=== PATIENT | male | born 1970 | race Caucasian/White ===

== ENCOUNTER 2019-01-07 19:43 | Inpatient (IN) | payer SELFPAY ==
[~2019-01-07] VITALS: Ht 182.9 cm; Wt 88.0 kg
[2019-01-07] VITALS (14 sets, daily range): BP systolic 92–129; BP diastolic 61–81
[~2019-01-07 19:43] MED LIST: HYDR-2890 PO; IBP800T PO
--- OUTSIDE RECORDS SUMMARY | 2019-01-07 19:47 | XMS REPORT | Continuity of Care Document ---
Author Author [facility] Organization [facility] Address Unknown Phone Unavailable Care Team Providers Care Fisher Seal Name Role Phone NO, LOCAL PHYSICIAN PP Unavailable Insurance Providers Payer Name Policy Number Subscriber Name Relationship Self Pay Dayne Acuañ Advance Directives Directive Response Recorded Date Advance Directives N 04/29/13 12:05pm Problems No Known Problems or Medical conditions. Social History History Response Recorded Date/Time Alcohol Use Occasionally Uses 04/29/13 12:05pm Recreational Drug Use Y POT 04/29/13 12:05pm Allergies, Adverse Reactions, Alerts Allergen Type Severity Reaction Last Updated No Known Drug Allergies 04/29/13 Medications Medication Dose Units Route Sig Qty Days Ibuprofen (Motrin) 800 Mg PO Q8HR PRN 30 Hydrocodone Bit/Acetaminophen (Hydrocodon-Acetaminophn 10-325) 1 Each PO Q6H PRN 5 Response Recorded Date/Time Status not known Unknown Results No Known Relevant Diagnostic Tests, Laboratory Data and/or Discharge Summary. Encounters Encounter Location Date/Time Departed Emergency Room [facility] 04/29/13 11:58am
--- OUTSIDE RECORDS SUMMARY | 2019-01-07 19:47 | XMS REPORT | Continuity of Care Document ---
Author Organization Unknown Address Unknown Allergies There is no data. Medications There is no data. Problems Date Dx Coded Attending Type Code Diagnosis Diagnosed By 02/02/2008 TIN DIAZ APRN 110.4 DERMATOPHYTOSIS OF FOOT 02/02/2008 TIN DIAZ APRN 300.00 ANXIETY 02/02/2008 TIN DIAZ APRN 564.00 CONSTIPATION 02/02/2008 TIN DIAZ APRN 110.4 DERMATOPHYTOSIS OF FOOT 02/02/2008 TIN DIAZ APRN 300.00 ANXIETY 02/02/2008 TIN DIAZ APRN 564.00 CONSTIPATION 02/02/2008 TIN DIAZ APRN 110.4 DERMATOPHYTOSIS OF FOOT 02/02/2008 TIN DIAZ APRN 300.00 ANXIETY 02/02/2008 TIN DIAZ APRN 564.00 CONSTIPATION 03/16/2008 TIN DIAZ APRN 815.00 CLOSED FRACTURE OF METACARPAL BONE(S) SITE UNSPECIFIED 03/16/2008 TIN DIAZ APRN 815.00 CLOSED FRACTURE OF METACARPAL BONE(S) SITE UNSPECIFIED 03/16/2008 TIN DIAZ APRN 815.00 CLOSED FRACTURE OF METACARPAL BONE(S) SITE UNSPECIFIED Procedures There is no data. Results There is no data. Encounters ACCT No. Visit Date/Time Discharge Status Pt. Type Provider Facility Loc./Unit Complaint [id number] 01/05/2019 10:00:00 ACT Outpatient TIN DIAZ APRN [facility] [id number] 04/29/2013 11:58:00 04/29/2013 15:25:00 DIS Emergency [id number] 07/31/2014 08:35:00 07/31/2014 23:59:59 CLS Outpatient TIN DIAZ APRN [id number] 05/28/2014 08:14:00 05/28/2014 23:59:59 CLS Outpatient TIN DIAZ APRN [id number] 02/04/2009 00:00:00 02/04/2009 23:59:59 CLS Outpatient TIN DIAZ APRN
--- OUTSIDE RECORDS SUMMARY | 2019-01-07 19:47 | XMS REPORT ---
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 Problem Generalized anxiety disorder F41.1 Active [id number] ALLERGIES No Information ENCOUNTERS Encounter Location Date Diagnosis [facility] [address] [place] [address] November, [facility] [place] [id number] [place] [phone] November, [facility] [address] [place] [address] Oct, Methamphetamine use disorder, severe, 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 and Cannabis use disorder, severe, in sustained remission F12.21 [facility] [address] [place] [address] Oct, Methamphetamine use disorder, severe, 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 and Cannabis use disorder, severe, in sustained remission F12.21 [facility] [place] [id number] [place] [address] Oct, Generalized anxiety disorder F41.1 [facility] [place] [id number] [place] [phone] Oct, [facility] [place] [id number] [place] [phone] Oct, [facility] [place] [id number] [place] [address] Oct, Generalized anxiety disorder F41.1 [facility] [place] [id number] [place] [phone] Oct, Generalized anxiety disorder F41.1 [facility], [place] [id number] [address] Oct, [facility], [place] [id number] [place] [address] Oct, [facility] [place] [address] [place] [address] Aug, [facility] [place] [id number] [place] [address] Aug, [facility] [place] [id number] [place] [address] Jul, [facility] [place] [id number] [place] [address] Jul, [facility] [place] [address] [place] [address] May, [facility] [place] [id number] [place] [address] May, IMMUNIZATIONS No Known Immunizations SOCIAL HISTORY Never Assessed REASON FOR VISIT EMR-[facility] PLAN OF CARE VITAL SIGNS MEDICATIONS Unknown Medications RESULTS No Results PROCEDURES No Known procedures INSTRUCTIONS MEDICATIONS ADMINISTERED No Known Medications MEDICAL (GENERAL) HISTORY Type Description Date Medical History Anxiety Medical History Depression Surgical History Jaw surgery plate put in 2010 Surgical History pins placed in jaw 190
[2019-01-07] MEDS ORDERED: NS IV 1000 ML 2,000 ML IV ONE (20:00)
[2019-01-07] MEDS ORDERED: PROPOFOL DRIP (ICU) 100 ML IV SCH (20:00)
[2019-01-07] MEDS ORDERED: LORazepam INJ 2 MG/ML (ATIVAN) VIAL IVP ONE (20:00)
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
[2019-01-07 20:04] LABS: BASOPHILS % (AUTO) 0 % (0-10); EOSINOPHILS % (AUTO) 0 % (0-10); HEMATOCRIT 43 % (40-54); HEMOGLOBIN 15.2 G/DL (13.3-17.7); LYMPHOCYTES # (AUTO) 0.9 X 10^3 (1.0-4.0); LYMPHOCYTES % (AUTO) 9 % (12-44); MEAN CORPUSCULAR HEMOGLOBIN 30 PG (25-34); MEAN CORPUSCULAR HGB CONC 35 G/DL (32-36); MEAN CORPUSCULAR VOLUME 85 FL (80-99); MEAN PLATELET VOLUME 9.9 FL (7.4-10.4); MONOCYTES % (AUTO) 9 % (0-12); NEUTROPHILS % (AUTO) 82 % (42-75); PLATELET COUNT 302 10^3/uL (130-400); RED CELL DISTRIBUTION WIDTH 12.4 % (10.0-14.5); WHITE BLOOD COUNT 10.9 10^3/uL (4.3-11.0)
[2019-01-07 20:07] LABS: BILIRUBIN,URINE NEGATIVE (NEGATIVE); CLARITY,URINE CLEAR; COLOR,URINE YELLOW; GLUCOSE, URINE (UA) NEGATIVE (NEGATIVE); KETONES,URINE NEGATIVE (NEGATIVE); LEUKOCYTE ESTERASE ,URINE 1+ (NEGATIVE); NITRITE,URINE NEGATIVE (NEGATIVE); PH,URINE 6 (5-9); PROTEIN,URINE 1+ (NEGATIVE); UROBILINOGEN,URINE NORMAL (NORMAL)
[2019-01-07 20:16] LABS: ALANINE AMINOTRANSFERASE 36 U/L (0-55); ALBUMIN 4.1 GM/DL (3.2-4.5); ALKALINE PHOSPHATASE 64 U/L (40-136); BILIRUBIN,TOTAL 1.1 MG/DL (0.1-1.0); BUN/CREATININE RATIO 9; CALCIUM 9.2 MG/DL (8.5-10.1); CARBON DIOXIDE 21 MMOL/L (21-32); CHLORIDE 111 MMOL/L (98-107); CREATININE SERUM 1.17 MG/DL (0.60-1.30); GFR ESTIMATED > 60; GLUCOSE 108 MG/DL (70-105); POTASSIUM 3.9 MMOL/L (3.6-5.0); SALICYLATE < 5.0 MG/DL (5.0-20.0); SODIUM 145 MMOL/L (135-145); TOTAL PROTEIN 6.9 GM/DL (6.4-8.2)
[2019-01-07 20:20] LABS: ACETAMINOPHEN < 10 UG/ML (10-30)
[2019-01-07 20:25] LABS: ABG BASE EXCESS 0.3 MMOL/L (-2.5-2.5); ABG OXYGEN SATURATION 100 % (94-100); ABG PCO2 49 MMHG (35-45); ABG PO2 237 MMHG (79-93); ABG TCO2 27.1 MMOL/L (21.0-31.0); ALLENS TEST POSITIVE; INSPIRED O2 N; PATIENT TEMP 97.2
[2019-01-07 20:26] LABS: ABG PH 7.34 (7.37-7.43); VENTILATOR YES
[2019-01-07] MEDS ORDERED: SUCCINYLCHOLINE INJ 100 MG/5 ML SYR INJ ONE (20:30)
[2019-01-07] MEDS ORDERED: ETOMIDATE IV SOLN 20 MG/10 ML VIAL IV ONE (20:30)
[2019-01-07 20:31] LABS: AMPHETAMINE SCREEN, URINE POSITIVE (NEGATIVE); BARBITURATE SCREEN URINE NEGATIVE (NEGATIVE); BENZODIAZEPINES SCREEN URINE POSITIVE (NEGATIVE); CANNABINOID SCREEN, URINE POSITIVE (NEGATIVE); COCAINE SCREEN URINE NEGATIVE (NEGATIVE); METHADONE STAT NEGATIVE (NEGATIVE); METHAMPHETAMINE SCREEN URINE S NEGATIVE (NEGATIVE); OPIATE SCREEN URINE NEGATIVE (NEGATIVE); OXYCODONE STAT NEGATIVE (NEGATIVE); PROPOXYPHENE STAT NEGATIVE (NEGATIVE); TRICYCLIC ANTIDEPRESSANTS SCRE NEGATIVE (NEGATIVE)
--- NOTE | 2019-01-07 20:37 | Diagnostic Imaging Report ---
INDICATION: Respiratory distress. EXAMINATION: Portable supine AP chest at 8:15 p.m. COMPARISON: There are no prior studies available for comparison. FINDINGS: The heart size is within normal limits. The central pulmonary vascularity is prominent. This may be related to the patient's supine position. There is no evidence for overt failure, pneumonia or for a pleural effusion. The mediastinum is not widened. The osseous structures are intact. The patient has been intubated. An ET tube tip overlies the distal tracheal air shadow. The tip is approximately 3.1 cm cephalad to the ruthann. An OG line has also been inserted. The tip of the OG line overlies the left lung base. Left hemidiaphragm is elevated and I suspect that the tip of the OG line is within the stomach as opposed to the left lung base. If further evaluation of the precise location of the NG line is desired, then CT would be recommended. IMPRESSION: 1. There is no acute cardiopulmonary abnormality identified. 2. The ET tube tip appears to be in good position. The tip of the OG line is more likely within the stomach than in the left lung base. Recommendations as above. Dictated by: Dictated on workstation # [id number]
[2019-01-07 20:42] LABS: BACTERIA,URINE NEGATIVE /HPF; RBC,URINE 0-2 /HPF; WBC,URINE 0-2 /HPF
--- NOTE | 2019-01-07 20:55 | NUR ---
PT TO CT WITH RN/RT/RAD.
--- OUTSIDE RECORDS SUMMARY | 2019-01-07 21:03 | XMS REPORT | Continuity of Care Document ---
[...] Status Pt. Type Provider Facility Loc./Unit Complaint [id number] 01/05/2019 10:00:00 ACT Outpatient TIN DIAZ APRN [facility] [id number] 04/29/2013 11:58:00 04/29/2013 15:25:00 DIS Emergency [id number] 07/31/2014 08:35:00 07/31/2014 23:59:59 CLS Outpatient TIN DIAZ APRN [id number] 05/28/2014 08:14:00 05/28/2014 23:59:59 CLS Outpatient TIN DIAZ APRN [id number] 02/04/2009 00:00:00 02/04/2009 23:59:59 CLS Outpatient TIN DIAZ APRN
--- NOTE | 2019-01-07 21:10 | NUR ---
PT TO ICU RM 1
--- NOTE | 2019-01-07 21:28 | Diagnostic Imaging Report ---
PROCEDURE: CT head without contrast. TECHNIQUE: Multiple contiguous axial images were obtained through the brain without the use of intravenous contrast. Auto Exposure Controls were utilized during the CT exam to meet ALARA standards for radiation dose reduction. INDICATION: Overdose. COMPARISON: There are no prior studies available for comparison. FINDINGS: There is no mass, shift of the midline or hemorrhage to suggest an acute intracranial abnormality. The ventricles are not abnormally dilated. The sulcal pattern is not as prominent as usually seen but still evident. The possibility of generalized brain edema should be considered. The bone windows show no evidence for an acute fracture. There do appear to be long-standing fractures of the nasal bone. The orbits are symmetrical and within normal limits. There is mucosal thickening of the ethmoid sinuses. The sinuses are otherwise generally clear. The patient has been intubated and there is an OG line in place. IMPRESSION: There is no mass or hemorrhage identified. The sulcal pattern is somewhat effaced, however, and this could be secondary to generalized brain edema. If further imaging is desired, then MRI would be recommended. Dictated by: Dictated on workstation # [id number]
[2019-01-07] MEDS ORDERED: CATHETER FLUSH 10 ML SYR IV PRN (21:30)
[2019-01-07] MEDS: 1/2 NS W/KCL 20 MEQ/L 1,000 ML IV SCH (21:54)
[2019-01-07] MEDS: CATHETER FLUSH 10 ML SYR IV SCH (22:00)
[2019-01-07 23:30] LABS: BASOPHILS % (AUTO) 0 % (0-10); EOSINOPHILS % (AUTO) 0 % (0-10); HEMATOCRIT 40 % (40-54); HEMOGLOBIN 13.8 G/DL (13.3-17.7); LYMPHOCYTES # (AUTO) 1.2 X 10^3 (1.0-4.0); LYMPHOCYTES % (AUTO) 13 % (12-44); MEAN CORPUSCULAR HEMOGLOBIN 30 PG (25-34); MEAN CORPUSCULAR HGB CONC 34 G/DL (32-36); MEAN CORPUSCULAR VOLUME 87 FL (80-99); MEAN PLATELET VOLUME 9.6 FL (7.4-10.4); MONOCYTES # (AUTO) 0.7 X 10^3 (0.0-1.0); MONOCYTES % (AUTO) 7 % (0-12); NEUTROPHILS # (AUTO) 7.7 X 10^3 (1.8-7.8); NEUTROPHILS % (AUTO) 79 % (42-75); PLATELET COUNT 233 10^3/uL (130-400); RED CELL DISTRIBUTION WIDTH 12.3 % (10.0-14.5); WHITE BLOOD COUNT 9.7 10^3/uL (4.3-11.0)
--- NOTE | 2019-01-07 23:56 | Anesthesia-Procedure Note ---
Procedures/Interventions Procedure Start/Stop/Diagnosis Date of Procedure: Jan 07, 2019 Start Time: 23:33 Referring Physician: Tanesha Preprocedural Diagnosis: Hypotension, Vent management Brief History Lisette Verduzco RN asked me to place an arterial line in ICU 1. Patient is on propofol gtt for sedation for vent management. NIBP on my arrival was 100/50. 20g arterial line placed in the patient's right wrist x 1 attempt, easily. Good waveform, opsite covering, reported off to Lisette Verduzco RN and she reapplied wrist restraint. Stop Time: 23:42 Arterial Line Arterial Line Catheter: 20G Type: Radial Location: Right Procedure: prepped, draped in sterile fashion, good wave-form was obtained, patient tolerated procedure well, no immediate complications, post procedure area cleaned, post procedure dressing applied MIGUEL WITT CRNA Jan 07, 2019 23:56
[2019-01-08] VITALS (34 sets, daily range): BP systolic 106–154; BP diastolic 57–89
[2019-01-08 03:21] LABS: ABG BASE EXCESS -0.8 MMOL/L (-2.5-2.5); ABG OXYGEN SATURATION 94 % (94-100); ABG PCO2 41 MMHG (35-45); ABG PH 7.38 (7.37-7.43); ABG PO2 66 MMHG (79-93); ABG TCO2 25.2 MMOL/L (21.0-31.0); ALLENS TEST ARTLINE; BASOPHILS # (AUTO) 0.1 10^3/uL (0.0-0.1); BASOPHILS % (AUTO) 1 % (0-10); EOSINOPHILS # (AUTO) 0.2 10^3/uL (0.0-0.3); EOSINOPHILS % (AUTO) 2 % (0-10); HEMATOCRIT 40 % (40-54); HEMOGLOBIN 13.6 G/DL (13.3-17.7); INSPIRED O2 21%; LYMPHOCYTES # (AUTO) 1.7 X 10^3 (1.0-4.0); LYMPHOCYTES % (AUTO) 20 % (12-44); MEAN CORPUSCULAR HEMOGLOBIN 30 PG (25-34); MEAN CORPUSCULAR HGB CONC 34 G/DL (32-36); MEAN CORPUSCULAR VOLUME 87 FL (80-99); MEAN PLATELET VOLUME 9.7 FL (7.4-10.4); MONOCYTES # (AUTO) 0.8 X 10^3 (0.0-1.0); MONOCYTES % (AUTO) 10 % (0-12); NEUTROPHILS # (AUTO) 5.7 X 10^3 (1.8-7.8); NEUTROPHILS % (AUTO) 68 % (42-75); PATIENT TEMP 96.7; PLATELET COUNT 232 10^3/uL (130-400); RED CELL DISTRIBUTION WIDTH 12.4 % (10.0-14.5); VENTILATOR YES; WHITE BLOOD COUNT 8.4 10^3/uL (4.3-11.0)
[2019-01-08] MEDS: 1/2 NS W/KCL 20 MEQ/L 1,000 ML IV SCH ×4 (03:29→20:47)
[2019-01-08 03:40] LABS: ALANINE AMINOTRANSFERASE 26 U/L (0-55); ALBUMIN 3.5 GM/DL (3.2-4.5); ALKALINE PHOSPHATASE 52 U/L (40-136); BILIRUBIN,TOTAL 0.9 MG/DL (0.1-1.0); BUN/CREATININE RATIO 11; CALCIUM 8.4 MG/DL (8.5-10.1); CARBON DIOXIDE 21 MMOL/L (21-32); CHLORIDE 112 MMOL/L (98-107); CREATININE SERUM 0.89 MG/DL (0.60-1.30); GFR ESTIMATED > 60; GLUCOSE 95 MG/DL (70-105); MAGNESIUM 2.1 MG/DL (1.8-2.4); PHOSPHORUS 3.7 MG/DL (2.3-4.7); SODIUM 142 MMOL/L (135-145); TOTAL PROTEIN 5.5 GM/DL (6.4-8.2)
[2019-01-08] MEDS: POTASSIUM CL 10MEQ/50ML IVPB 50 ML IV SCH (04:04)
[2019-01-08] MEDS: MAGNESIUM 1 GM/100 ML IVPB 100 ML IV SCH (04:05)
[2019-01-08] MEDS: KCL 20 MEQ TAB (K-DUR) PO SCH (04:05)
[2019-01-08] MEDS: CATHETER FLUSH 10 ML SYR IV SCH ×3 (06:06→20:48)
[2019-01-08] MEDS: FAMOTIDINE 20MG/2ML IV (PEPCID) IV SCH ×2 (08:38→20:47)
[2019-01-08] MEDS: ENOXAPARIN 40 MG/0.4 ML (LOVENOX) SYR SC SCH (08:38)
--- NOTE | 2019-01-08 09:18 | History & Physical-Hospitalist ---
History of Present Illness HPI/Chief Complaint 48-year-old white male who is brought to the emergency room by the [facility] after he had been chased and then ingested his stash of meth and perhaps Zoloft. The patient was obtunded when he was brought to the emergency room with a seizure-like activity and was electively intubated by Dr. Lincoln to protect his airway. This morning the patient is on a propofol drip breathing easily with excellent blood gases and vital signs. We tapered off the propofol and the patient became extremely agitated and was pulling at his tubes and was not following commands reliably. It is felt that he may not have absorbed all of the methamphetamine or processed it and as such is paralyzed again. Another attempt will be made later this afternoon at tapering off the propofol. Source: old records Exam Limitations: clinical condition, other Date Seen 01/08/19 Time Seen by a Provider: 08:00 Attending Physician Carolann Meng MD PCP No,Local Physician Referring Physician Date of Admission Jan 07, 2019 at 20:59 Home Medications & Allergies Home Medications Reviewed patient Home Medication Reconciliation performed by pharmacy medication reconciliations soil field technician and/or nursing. Patients Allergies have been reviewed. Allergies Allergies Coded Allergies No Known Drug Allergies (Unverified04/29/13) Past Ekqjkym-Kivzgo-Wgiydb Hx Past Med/Social Hx: Reviewed Nursing Past Med/Soc Hx Patient Social History Alcohol Use: Occasionally Uses Recreational Drug Use: Yes Drug of Choice: meth Smoking Status: Unknown if Ever Smoked 2nd Hand Smoke Exposure: Yes Recent Foreign Travel: No Contact w/other who traveled: No Recent Hopitalizations: No Recent Infectious Disease Expo: No Immunizations Up To Date Tetanus Booster (TDap): Less than 5yrs Seasonal Allergies Seasonal Allergies: No Past Medical History Musculoskeletal: Fractures Family History Reviewed Nursing Family Hx Review of Systems ROS-Unable to Obtain: Patient is intubated and sedated and unable to give any review of symptoms Constitutional: no symptoms reported Physical Exam Physical Exam Vital Signs Vital Signs - First Documented 01/07/19 01/07/19 01/07/19 01/07/19 19:43 20:00 20:08 20:09 Temp 97.2 Pulse 100 Resp 40 B/P (MAP) 139/74 (95) Pulse Ox 99 O2 Delivery Room Air O2 Flow Rate 60.00 FiO2 60 Capillary Refill : Less Than 3 Seconds Height, Weight, BMI Height: 6'0.00" Weight: 195lbs. 0.0oz. 88.194807uc; 26.5 BMI Method:Estimated General Appearance: No Apparent Distress, WD/WN HEENT: Normal ENT Inspection, Other (Pupils are pin prick) Neck: Normal Inspection, Supple Respiratory: Chest Non Tender, Lungs Clear, Normal Breath Sounds, No Accessory Muscle Use, No Respiratory Distress Cardiovascular: Regular Rate, Rhythm, No Gallop, No Murmur, Normal Peripheral Pulses Gastrointestinal: Normal Bowel Sounds, No Organomegaly, Non Tender, Soft Rectal: Deferred Back: Normal Inspection Extremity: Normal Capillary Refill, No Pedal Edema Neurologic/Psychiatric: Other ( sedated and intubated) Skin: Normal Color, Warm/Dry Results Results/Procedures Labs Laboratory Tests 01/07/19 19:45 01/07/19 23:25 01/08/19 03:15 01/08/19 12:15 01/09/19 02:45 Patient resulted labs reviewed. Imaging: Reviewed Imaging Report Assessment/Plan Admission Diagnosis Intentional methamphetamine overdose Respiratory failure secondary to overdose Plan is to keep patient intubated for protection of his airway and to control his agitation until the methamphetamine has been metabolized and any absorbed medications have been processed. Admission Status: Inpatient Order (span 2 midnights) Reason for Inpatient Admission: Respiratory failure Polydrug abuse Intentional overdose Critical Care Ventilator Management Clinical Quality Measures DVT/VTE Risk/Contraindication: Risk Factor Score Per Nursin RFS Level Per Nursing on Admit: 4+=Very High CAROLANN MENG MD Jan 08, 2019 09:18
--- NOTE | 2019-01-08 10:37 | Diagnostic Imaging Report ---
INDICATION: Drug overdose. Comparison made with prior examination 01/07/2019. FINDINGS: The endotracheal tube is in satisfactory position. Nasogastric tube is in the stomach. Heart size is normal. Lungs are clear. There is no pleural effusion or pneumothorax. Mediastinum is unremarkable. IMPRESSION: No acute cardiopulmonary abnormality. Dictated by: Dictated on workstation # [id number]
[2019-01-08 12:25] LABS: BASOPHILS % (AUTO) 0 % (0-10); EOSINOPHILS # (AUTO) 0.2 10^3/uL (0.0-0.3); EOSINOPHILS % (AUTO) 2 % (0-10); HEMATOCRIT 41 % (40-54); HEMOGLOBIN 13.7 G/DL (13.3-17.7); LYMPHOCYTES # (AUTO) 1.1 X 10^3 (1.0-4.0); LYMPHOCYTES % (AUTO) 9 % (12-44); MEAN CORPUSCULAR HEMOGLOBIN 30 PG (25-34); MEAN CORPUSCULAR HGB CONC 34 G/DL (32-36); MEAN CORPUSCULAR VOLUME 88 FL (80-99); MEAN PLATELET VOLUME 9.7 FL (7.4-10.4); MONOCYTES # (AUTO) 0.9 X 10^3 (0.0-1.0); MONOCYTES % (AUTO) 7 % (0-12); NEUTROPHILS % (AUTO) 82 % (42-75); PLATELET COUNT 209 10^3/uL (130-400); RED CELL DISTRIBUTION WIDTH 12.6 % (10.0-14.5); WHITE BLOOD COUNT 12.3 10^3/uL (4.3-11.0)
[2019-01-08] MEDS: DEXMEDETOMIDINE INJECTION 200 MCG in NS (IVPB) 50 ML IV SCH ×2 (13:45→14:23)
[2019-01-08] MEDS: LORazepam INJ 2 MG/ML (ATIVAN) VIAL IVP PRN (14:57)
[2019-01-08] MEDS: DEXMEDETOMIDINE INJECTION 400 MCG in NS (IVPB) 100 ML IV SCH ×2 (15:29→20:48)
[2019-01-09] VITALS (35 sets, daily range): BP systolic 92–172; BP diastolic 40–96
[2019-01-09] MEDS: DEXMEDETOMIDINE INJECTION 400 MCG in NS (IVPB) 100 ML IV SCH ×3 (01:35→10:49)
[2019-01-09] MEDS: 1/2 NS W/KCL 20 MEQ/L 1,000 ML IV SCH (01:48)
[2019-01-09 02:59] LABS: ABG BASE EXCESS -1.4 MMOL/L (-2.5-2.5); ABG OXYGEN SATURATION 96 % (94-100); ABG PCO2 37 MMHG (35-45); ABG PH 7.41 (7.37-7.43); ABG PO2 68 MMHG (79-93); ABG TCO2 23.8 MMOL/L (21.0-31.0); ALLENS TEST ARTLINE; INSPIRED O2 24%; PATIENT TEMP 97.8; VENTILATOR YES
[2019-01-09 03:00] LABS: BASOPHILS # (AUTO) 0.1 10^3/uL (0.0-0.1); BASOPHILS % (AUTO) 0 % (0-10); EOSINOPHILS # (AUTO) 0.2 10^3/uL (0.0-0.3); EOSINOPHILS % (AUTO) 2 % (0-10); HEMATOCRIT 42 % (40-54); HEMOGLOBIN 14.7 G/DL (13.3-17.7); LYMPHOCYTES % (AUTO) 7 % (12-44); MEAN CORPUSCULAR HEMOGLOBIN 30 PG (25-34); MEAN CORPUSCULAR HGB CONC 35 G/DL (32-36); MEAN CORPUSCULAR VOLUME 85 FL (80-99); MEAN PLATELET VOLUME 9.5 FL (7.4-10.4); MONOCYTES # (AUTO) 0.8 X 10^3 (0.0-1.0); MONOCYTES % (AUTO) 6 % (0-12); NEUTROPHILS # (AUTO) 11.8 X 10^3 (1.8-7.8); NEUTROPHILS % (AUTO) 85 % (42-75); PLATELET COUNT 192 10^3/uL (130-400); RED CELL DISTRIBUTION WIDTH 12.6 % (10.0-14.5); WHITE BLOOD COUNT 13.9 10^3/uL (4.3-11.0)
[2019-01-09 03:17] LABS: BUN/CREATININE RATIO 11; CALCIUM 8.4 MG/DL (8.5-10.1); CARBON DIOXIDE 19 MMOL/L (21-32); CHLORIDE 106 MMOL/L (98-107); CREATININE SERUM 0.83 MG/DL (0.60-1.30); GFR ESTIMATED > 60; GLUCOSE 93 MG/DL (70-105); MAGNESIUM 1.7 MG/DL (1.8-2.4); PHOSPHORUS 2.8 MG/DL (2.3-4.7); POTASSIUM 3.9 MMOL/L (3.6-5.0); SODIUM 136 MMOL/L (135-145)
[2019-01-09] MEDS: MAGNESIUM 1 GM/100 ML IVPB 100 ML IV SCH ×3 (03:52→05:12)
[2019-01-09] MEDS: POTASSIUM CL 10MEQ/50ML IVPB 50 ML IV SCH (03:52)
[2019-01-09] MEDS: KCL 20 MEQ TAB (K-DUR) PO SCH (03:52)
[2019-01-09] MEDS ORDERED: LIDOCAINE PF 2% 5 ML (XYLOCAINE) VIAL INJ ONE (05:00)
[2019-01-09] MEDS: CATHETER FLUSH 10 ML SYR IV SCH ×3 (05:36→21:45)
[2019-01-09] MEDS ORDERED: LACTATED RINGERS 500 ML IV SCH (05:45)
[2019-01-09] MEDS ORDERED: SODIUM PHOSPHATE INJ 30 MM in NS (IVPB) 250 ML IV ONE (05:45)
--- NOTE | 2019-01-09 05:49 | Pulmonary Consultation ---
History of Present Illness History of Present Illness Date of Consultation 01/08/19-- late note today is 01/09/19 1630 Time Seen by Provider: 05:42 Date of Admission History of Present Illness 48yo pt presented to ED by 's Dept after he ingested meth and questionable Zoloft. Upon ED presentation he was obtunded with questionable seizure activity. Pt was intubated in ED for airway protection. I am consulted for pulmonary/CC management. Pt is currently sedated on vent. RT is reporting pt has copious amounts of sputum production. Allergies and Home Medications Allergies Coded Allergies: No Known Drug Allergies (Unverified , 04/29/13) Home Medications Hydrocodone Bit/Acetaminophen 1 Each Tablet, 1 EACH PO Q6H PRN Prescribed by: JORGE L SAUL on 04/29/13 1506 Ibuprofen 800 Mg Tab, 800 MG PO Q8HR PRN Prescribed by: JORGE L SAUL on 04/29/13 1506 Past Ccdmleo-Snyngq-Kdhldd Hx Past Med/Social Hx: Reviewed Nursing Past Med/Soc Hx Patient Social History Alcohol Use: Occasionally Uses Recreational Drug Use: Yes Drug of Choice: meth Smoking Status: Unknown if Ever Smoked 2nd Hand Smoke Exposure: Yes Recent Foreign Travel: No Contact w/Someone Who Travel: No Recent Infectious Disease Expo: No Recent Hopitalizations: No Immunizations Up To Date Tetanus Booster (TDap): Less than 5yrs Seasonal Allergies Seasonal Allergies: No Past Medical History Surgeries: No Respiratory: No Cardiac: No Neurological: No Genitourinary: No Gastrointestinal: No Musculoskeletal: Yes Fractures Endocrine: No HEENT: No Cancer: No Psychosocial: Yes Integumentary: No Family Medical History Reviewed Nursing Family Hx Review of Systems Time Seen by Provider: 05:53 Sepsis Event Evaluation Height, Weight, BMI Height: 6'0.00" Weight: 193lbs. 3.0oz. 87.238116oi; 26.5 BMI Method:Estimated Exam Exam Vital Signs Date Time Temp Pulse Resp B/P (MAP) Pulse Ox O2 Delivery O2 Flow Rate FiO2 01/09/19 05:00 79 23 139/68 (91) 96 Mechanical Ventilator 24.00 01/09/19 04:04 75 27 94 24 01/09/19 04:00 79 21 150/75 (100) 96 Mechanical Ventilator 24.00 125/87 (100) 01/09/19 04:00 Mechanical Ventilator 21 01/09/19 03:53 97.2 01/09/19 03:00 77 23 144/71 (95) 94 Mechanical Ventilator 24.00 01/09/19 02:30 75 24 95 24 01/09/19 02:00 77 22 152/76 (101) 96 Mechanical Ventilator 24.00 01/09/19 01:53 74 01/09/19 01:34 Mechanical Ventilator 24.00 01/09/19 01:00 74 24 145/73 (97) 94 Mechanical Ventilator 24.00 01/09/19 00:56 73 22 94 24 01/09/19 00:00 97.6 01/09/19 00:00 Mechanical Ventilator 21 01/09/19 00:00 75 20 147/73 (97) 94 Mechanical Ventilator 24.00 148/96 (113) 01/08/19 23:38 75 20 142/89 (106) 95 Mechanical Ventilator 24.00 01/08/19 23:00 71 21 154/73 (100) 96 Mechanical Ventilator 24.00 01/08/19 22:14 98.1 80 22 136/69 95 Mechanical Ventilator 24.00 01/08/19 22:14 71 25 96 24 01/08/19 22:00 76 22 146/75 (98) 95 Mechanical Ventilator 24.00 01/08/19 21:00 80 20 143/71 (95) 96 Mechanical Ventilator 24.00 01/08/19 20:49 78 23 96 30 01/08/19 20:49 80 22 136/69 (91) 95 Mechanical Ventilator 24.00 01/08/19 20:00 Mechanical Ventilator 21 01/08/19 20:00 98.1 01/08/19 20:00 77 22 148/72 (97) 98 Mechanical Ventilator 30.00 01/08/19 19:00 80 01/08/19 19:00 80 25 152/72 (98) 95 Mechanical Ventilator 30.00 01/08/19 18:41 70 20 90 21 01/08/19 18:05 78 01/08/19 18:00 76 25 143/68 (93) 90 Mechanical Ventilator 21.00 01/08/19 17:00 78 19 136/66 (89) 93 Mechanical Ventilator 21.00 01/08/19 16:00 97.5 01/08/19 16:00 81 20 119/58 (78) 92 Mechanical Ventilator 21.00 01/08/19 16:00 Mechanical Ventilator 21 01/08/19 15:00 84 19 137/59 (85) 95 Mechanical Ventilator 21.00 01/08/19 14:15 80 22 97 21 01/08/19 14:00 85 22 130/63 (85) 96 Mechanical Ventilator 21.00 01/08/19 13:45 88 01/08/19 13:00 79 18 120/57 (78) 93 Mechanical Ventilator 21.00 01/08/19 13:00 79 01/08/19 12:00 Mechanical Ventilator 21 01/08/19 12:00 97.3 01/08/19 12:00 80 19 118/57 (77) 91 Mechanical Ventilator 21.00 01/08/19 11:00 79 20 141/66 (91) 97 Mechanical Ventilator 21.00 01/08/19 10:25 79 18 95 21 01/08/19 10:20 97.4 77 19 123/88 95 Mechanical Ventilator 21.00 01/08/19 10:00 79 18 112/61 (78) 95 Mechanical Ventilator 21.00 01/08/19 09:00 79 22 148/73 (98) 93 Mechanical Ventilator 21.00 01/08/19 08:00 74 18 132/80 (97) 97 Mechanical Ventilator 21.00 01/08/19 08:00 Mechanical Ventilator 21 01/08/19 07:00 64 01/08/19 07:00 97.4 64 17 109/70 (83) 96 Mechanical Ventilator 21.00 01/08/19 06:35 65 18 96 21 01/08/19 06:00 96.0 66 17 111/72 (85) 96 Mechanical Ventilator 21.00 01/08/19 05:50 69 123/88 I & O 01/09/19 07:00 Intake Total 2508 ml Output Total 1325 ml Balance 1183 ml Height & Weight Height: 6'0.00" Weight: 193lbs. 3.0oz. 87.930682yi; 26.5 BMI Method:Estimated General Appearance: No Apparent Distress, WD/WN, Other (sedated on vent) HEENT: Normal ENT Inspection Neck: Normal Inspection, Supple Respiratory: Chest Non Tender, Lungs Clear, Normal Breath Sounds, No Accessory Muscle Use, No Respiratory Distress Cardiovascular: Regular Rate, Rhythm, No Gallop, No Murmur, Normal Peripheral Pulses Capillary Refill: Less Than 3 Seconds Peripheral Pulses: 2+ Radial Pulses (R), 2+ Radial Pulses (L) Gastrointestinal: non tender, soft Extremity: Normal Capillary Refill, No Pedal Edema Neurologic/Psychiatric: Other ( sedated and intubated) Skin: Normal Color, Warm/Dry Results Lab Laboratory Tests 01/07/19 19:45 01/07/19 23:25 01/08/19 03:15 01/08/19 12:15 01/09/19 02:45 Assessment/Plan Assessment/Plan Acute respiratory failure -Currently sedated on vent -Thick copious sputum production with mucous plugging reported by RT -Will do bronchoscopy in AM and if everything looks ok will proceed with vent weaning -Continue sedation for now propofol, and precedex Hypomag -replace Hyponatremia -Change IVF from 1/2 NS to NS at 75cc/hr Methamphetamine OD Marijuana GI/DVT ppx [place] AMIN DO Jan 09, 2019 05:49
[2019-01-09] MEDS ORDERED: fentaNYL INJECTION 100 MCG/2 ML AMP ONE (05:53)
[2019-01-09] MEDS ORDERED: MIDAZOLAM 5 MG/5 ML (VERSED) VIAL ONE (05:53)
--- NOTE | 2019-01-09 06:22 | Pulmonary Progress Note ---
Subjective Time Seen by a Provider: 06:22 Subjective/Events-last exam Sedated on vent Sepsis Event Evaluation Height, Weight, BMI Height: 6'0.00" Weight: 193lbs. 3.0oz. 87.268447gw; 26.5 BMI Method:Estimated Focused Exam Lactate Level 01/07/19 20:26: Lactic Acid Level 0.94 Exam Exam Vital Signs Date Time Temp Pulse Resp B/P (MAP) Pulse Ox O2 Delivery O2 Flow Rate FiO2 01/09/19 06:13 79 23 96 24 01/09/19 06:03 97.2 79 23 139/68 96 Mechanical Ventilator 24.00 01/09/19 05:00 79 23 139/68 (91) 96 Mechanical Ventilator 24.00 01/09/19 04:04 75 27 94 24 01/09/19 04:00 79 21 150/75 (100) 96 Mechanical Ventilator 24.00 125/87 (100) 01/09/19 04:00 Mechanical Ventilator 21 01/09/19 03:53 97.2 01/09/19 03:00 77 23 144/71 (95) 94 Mechanical Ventilator 24.00 01/09/19 02:30 75 24 95 24 01/09/19 02:00 77 22 152/76 (101) 96 Mechanical Ventilator 24.00 01/09/19 01:53 74 01/09/19 01:34 Mechanical Ventilator 24.00 01/09/19 01:00 74 24 145/73 (97) 94 Mechanical Ventilator 24.00 01/09/19 00:56 73 22 94 24 01/09/19 00:00 97.6 01/09/19 00:00 Mechanical Ventilator 21 01/09/19 00:00 75 20 147/73 (97) 94 Mechanical Ventilator 24.00 148/96 (113) 01/08/19 23:38 75 20 142/89 (106) 95 Mechanical Ventilator 24.00 01/08/19 23:00 71 21 154/73 (100) 96 Mechanical Ventilator 24.00 01/08/19 22:14 98.1 80 22 136/69 95 Mechanical Ventilator 24.00 01/08/19 22:14 71 25 96 24 01/08/19 22:00 76 22 146/75 (98) 95 Mechanical Ventilator 24.00 01/08/19 21:00 80 20 143/71 (95) 96 Mechanical Ventilator 24.00 01/08/19 20:49 78 23 96 30 01/08/19 20:49 80 22 136/69 (91) 95 Mechanical Ventilator 24.00 01/08/19 20:00 Mechanical Ventilator 21 01/08/19 20:00 98.1 01/08/19 20:00 77 22 148/72 (97) 98 Mechanical Ventilator 30.00 01/08/19 19:00 80 01/08/19 19:00 80 25 152/72 (98) 95 Mechanical Ventilator 30.00 01/08/19 18:41 70 20 90 21 01/08/19 18:05 78 01/08/19 18:00 76 25 143/68 (93) 90 Mechanical Ventilator 21.00 01/08/19 17:00 78 19 136/66 (89) 93 Mechanical Ventilator 21.00 01/08/19 16:00 97.5 01/08/19 16:00 81 20 119/58 (78) 92 Mechanical Ventilator 21.00 01/08/19 16:00 Mechanical Ventilator 21 01/08/19 15:00 84 19 137/59 (85) 95 Mechanical Ventilator 21.00 01/08/19 14:15 80 22 97 21 01/08/19 14:00 85 22 130/63 (85) 96 Mechanical Ventilator 21.00 01/08/19 13:45 88 01/08/19 13:00 79 18 120/57 (78) 93 Mechanical Ventilator 21.00 01/08/19 13:00 79 01/08/19 12:00 Mechanical Ventilator 21 01/08/19 12:00 97.3 01/08/19 12:00 80 19 118/57 (77) 91 Mechanical Ventilator 21.00 01/08/19 11:00 79 20 141/66 (91) 97 Mechanical Ventilator 21.00 01/08/19 10:25 79 18 95 21 01/08/19 10:20 97.4 77 19 123/88 95 Mechanical Ventilator 21.00 01/08/19 10:00 79 18 112/61 (78) 95 Mechanical Ventilator 21.00 01/08/19 09:00 79 22 148/73 (98) 93 Mechanical Ventilator 21.00 01/08/19 08:00 74 18 132/80 (97) 97 Mechanical Ventilator 21.00 01/08/19 08:00 Mechanical Ventilator 21 01/08/19 07:00 64 01/08/19 07:00 97.4 64 17 109/70 (83) 96 Mechanical Ventilator 21.00 01/08/19 06:35 65 18 96 21 I & O 01/09/19 07:00 Intake Total 2608 ml Output Total 1325 ml Balance 1283 ml Height & Weight Height: 6'0.00" Weight: 193lbs. 3.0oz. 87.614281il; 26.5 BMI Method:Estimated General Appearance: No Apparent Distress, WD/WN, Other (sedated on vent) HEENT: Normal ENT Inspection Neck: Normal Inspection, Supple Respiratory: Chest Non Tender, Lungs Clear, Normal Breath Sounds, No Accessory Muscle Use, No Respiratory Distress Cardiovascular: Regular Rate, Rhythm, No Gallop, No Murmur, Normal Peripheral Pulses Capillary Refill: Less Than 3 Seconds Peripheral Pulses: 2+ Radial Pulses (R), 2+ Radial Pulses (L) Gastrointestinal: non tender, soft Extremity: Normal Capillary Refill, No Pedal Edema Neurologic/Psychiatric: Other ( sedated and intubated) Skin: Normal Color, Warm/Dry Results Lab Laboratory Tests 01/07/19 19:45 01/07/19 23:25 01/08/19 03:15 01/08/19 12:15 01/09/19 02:45 Assessment/Plan Assessment/Plan Acute respiratory failure -Currently sedated on vent -Thick copious sputum production with mucous plugging reported by RT -Will do bronchoscopy this AM and if everything looks ok will proceed with vent weaning -Continue sedation for now propofol, and precedex Hypomag -replace Hyponatremia -Change IVF from 1/2 NS to NS at 75cc/hr Methamphetamine OD Marijuana GI/DVT ppx [place] AMIN DO Jan 09, 2019 06:22
--- NOTE | 2019-01-09 06:45 | Diagnostic Imaging Report ---
Indication: Intubated. Comparison: 01/08/2019 at 2:30 a.m. Findings: Single view of the chest demonstrates CT tube in the mid trachea. NG tube is seen in the stomach. The lungs are clear. Heart is normal. There is no pneumothorax. Osseous structures stable. Impression: Stable support lines. No acute cardiopulmonary findings. Dictated by: Dictated on workstation # [id number]
[2019-01-09] MEDS: NS IV 1000 ML 1,000 ML IV SCH ×2 (06:58→08:08)
[2019-01-09] MEDS ORDERED: NS IV 1000 ML 1,000 ML IV SCH (07:00)
--- NOTE | 2019-01-09 07:16 | Pulmonary Procedures ---
Pulmonary Procedures Date of Procedure Date of Service: Jan 09, 2019 Bronch Bronchoscopy with bilateral bronchial washes. Preop DX: Copious amounts of yellow sputum with mucous plugs Postop DX: same Complications: none After informed consent obtained and formal time out pt was sedated using Fentanyl and Versed. Bronchoscope was advanced through the ET tube . 1% lidocaine was used to anesthetize vocal cords, epiglottis, ruthann, and lef t/right main stem bronchus. An anatomical tour was undertaken down to the segmental bronchi bilaterally. No endobronchial lesions noted.bilateral bronchial washes were obtained. Pt had copious amounts of yellow sputum with mucous plugs bilaterally. Pt tolerated procedure well. No complications noted. Stat CXR is pending. [place] AMIN DO Jan 09, 2019 07:16
--- NOTE | 2019-01-09 07:41 | NUR ---
Bronchoscopy timeline 0645 Pt given 4mg Versed [address] Darnell 0646 Bronchoscopy started [address] Darnell 0652 50mcg Fentanyl and 1mg Versed per Dr. Darnell 0713 1L NS Bolus given per Dr. Darnell
[2019-01-09] MEDS ORDERED: RT-ALBUTEROL/IPRATROPIUM 3 ML (DUONEB) VIAL INH PRN (07:45)
[2019-01-09] MEDS: FAMOTIDINE 20MG/2ML IV (PEPCID) IV SCH ×2 (08:08→21:44)
[2019-01-09] MEDS: ENOXAPARIN 40 MG/0.4 ML (LOVENOX) SYR SC SCH (08:08)
[2019-01-09] MEDS: RT-ALBUTEROL/IPRATROPIUM 3 ML (DUONEB) VIAL INH SCH ×4 (09:21→22:45)
[2019-01-09 09:40] LABS: BF OTHER CELLS 1 %; BODY FLUID APPEARENCE MKD CLDY; BODY FLUID COLOR COLORLESS; BODY FLUID SOURCE OTHER; LYMPHOCYTES,BODY FLUID 7 %
--- NOTE | 2019-01-09 10:00 | NUR ---
Pastoral care visit, family requested Chaplain Del Castillo, I had bedside prayer with family, pt intubated. I passed on referral to Chaplain Del Castillo.
[2019-01-09] MEDS: LORazepam INJ 2 MG/ML (ATIVAN) VIAL IVP PRN (10:25)
--- NOTE | 2019-01-09 10:25 | NUR ---
PT FIGHTING TO PULL AT TUBES AND SIT UP IN BED, 5 STAFF MEMBERS AT BEDSIDE TO KEEP PT FROM EXTUBATING SELF. PRN ATIVAN GIVEN.
--- NOTE | 2019-01-09 11:20 | NUR ---
UNABLE TO SPEAK WITH THE PATIENT AT THIS TIME BUT CALLED SIGNIFICANT OTHER SARAH AT [phone] TO ASK ABOUT MEDICATIONS. SHE STATES HE IS SUPPOSED TO TAKE ZOLOFT BUT HASN'T BEEN TAKING IT. HE DOES NOT TAKE ANYTHING OTC. SHE STATES HE FILLS HIS ZOLOFT AT [facility]. I CALLED [facility] BUT THEY HAVE NOT FILLED ANYTHING FOR THE PATIENT SINCE 2016, ZOLOFT WAS NOT ON RECORD. AT THIS TIME I SET THE PROFILE TO NO MEDICATIONS.
--- NOTE | 2019-01-09 11:50 | NUR ---
Referral for pastoral support, timber mill worker Lee Michel was contacted first and responded. He relayed to me the family's request that I visit also; prior rapport established while providing pastoral support to family during previous admissions to the hospital. Upon arrival, staff were in pt's room;pt was agitated and reported at risk of self-extubation. Pt's significant other, Liseth and 1st cousin, Adri met me in the hallway. Liseth was tearful and said she was going home. I remained with Adri in the hallway and offered active listening and calming presence until we were able to join the pt. Pt was unresponsive and resting, still intubated. Offered soothing touch and prayer. Adri remains with the pt at this time.
[2019-01-09] MEDS ORDERED: D5 LR IV SOLUTION 1,000 ML IV ONE (13:12)
[2019-01-09] MEDS ORDERED: DEXTROSE 50% 50 ML (IMS) SYR ONE (13:12)
[2019-01-09] MEDS: D5 LR IV SOLUTION 1,000 ML IV SCH (13:23)
[2019-01-09] MEDS ORDERED: DEXTROSE 50% 50 ML (IMS) SYR IV NR (13:30)
[2019-01-09] MEDS ORDERED: DEXTROSE 50% 50 ML (IMS) SYR IV ONE (13:30)
[2019-01-09] MEDS: DEXMEDETOMIDINE INJECTION 1,000 MCG in NS (IVPB) 250 ML IV SCH ×2 (14:04→22:35)
--- NOTE | 2019-01-09 15:49 | Progress Note-Hospitalist ---
Progress Note Progress Notes/Assess & Plan Date Seen 01/09/19 Time Seen by Provider: 15:45 Assessment & Plan The patient is a 48-year-old white male. Apparently he was being pursued by police. He apparently got out of his vehicle and took a large number of pills by mouth. This was thought to be both Zoloft and methamphetamine. He was extremely agitated and ultimately required paralysis and sedation with intubation to protect the airway. This morning he had endoscopy because of thick mucus production. He remains deeply sedated. Of interest his initial drug screen showed only amphetamine plus THC and benzos. One would speculate that he had had meth earlier in the week and that the meth that he had taken immediately prior to his encounter with the authorities and transferred to the ER had not entered the blood system. Physical exam: He is deeply sedated. Lungs are clear to auscultation. CV is regular. Patient is heavily tattooed. Impression: Methamphetamine use and addiction. Focused Exam Lactate Level 01/07/19 20:26: Lactic Acid Level 0.94 ANU SABILLON MD Jan 09, 2019 15:49
[2019-01-10] VITALS (27 sets, daily range): BP systolic 80–149; BP diastolic 45–67
[2019-01-10] MEDS: LORazepam INJ 2 MG/ML (ATIVAN) VIAL IVP PRN (01:39)
[2019-01-10] MEDS: CATHETER FLUSH 10 ML SYR IV SCH ×3 (02:53→22:00)
[2019-01-10] MEDS: D5 LR IV SOLUTION 1,000 ML IV SCH ×2 (02:53→15:59)
[2019-01-10] MEDS: RT-ALBUTEROL/IPRATROPIUM 3 ML (DUONEB) VIAL INH SCH ×6 (02:56→22:29)
[2019-01-10 03:22] LABS: BASOPHILS % (AUTO) 0 % (0-10); EOSINOPHILS # (AUTO) 0.2 10^3/uL (0.0-0.3); EOSINOPHILS % (AUTO) 1 % (0-10); HEMATOCRIT 40 % (40-54); HEMOGLOBIN 14.1 G/DL (13.3-17.7); LYMPHOCYTES # (AUTO) 0.6 X 10^3 (1.0-4.0); LYMPHOCYTES % (AUTO) 5 % (12-44); MEAN CORPUSCULAR HEMOGLOBIN 30 PG (25-34); MEAN CORPUSCULAR HGB CONC 35 G/DL (32-36); MEAN CORPUSCULAR VOLUME 85 FL (80-99); MEAN PLATELET VOLUME 9.8 FL (7.4-10.4); MONOCYTES % (AUTO) 8 % (0-12); NEUTROPHILS # (AUTO) 10.5 X 10^3 (1.8-7.8); NEUTROPHILS % (AUTO) 86 % (42-75); PLATELET COUNT 143 10^3/uL (130-400); RED CELL DISTRIBUTION WIDTH 12.3 % (10.0-14.5); WHITE BLOOD COUNT 12.3 10^3/uL (4.3-11.0)
[2019-01-10 03:36] LABS: ABG BASE EXCESS 0.2 MMOL/L (-2.5-2.5); ABG OXYGEN SATURATION 94 % (94-100); ABG PCO2 40 MMHG (35-45); ABG PH 7.41 (7.37-7.43); ABG PO2 63 MMHG (79-93); ABG TCO2 25.6 MMOL/L (21.0-31.0); ALLENS TEST ARTLINE
[2019-01-10 03:37] LABS: INSPIRED O2 35%; PATIENT TEMP 97.5; VENTILATOR YES
[2019-01-10 03:39] LABS: BUN/CREATININE RATIO 5; CALCIUM 8.2 MG/DL (8.5-10.1); CARBON DIOXIDE 22 MMOL/L (21-32); CHLORIDE 107 MMOL/L (98-107); CREATININE SERUM 0.91 MG/DL (0.60-1.30); GFR ESTIMATED > 60; GLUCOSE 128 MG/DL (70-105); MAGNESIUM 1.6 MG/DL (1.8-2.4); PHOSPHORUS 3.1 MG/DL (2.3-4.7); POTASSIUM 3.6 MMOL/L (3.6-5.0); SODIUM 138 MMOL/L (135-145)
[2019-01-10] MEDS: MAGNESIUM 1 GM/100 ML IVPB 100 ML IV SCH ×3 (04:15→05:09)
[2019-01-10 04:49] LABS: EOSINOPHILS % (MANUAL) 1 %; LYMPHOCYTES % (MANUAL) 6 %; MONOCYTES % (MANUAL) 8 %; NEUTROPHILS % (MANUAL) 85 %
[2019-01-10] MEDS: POTASSIUM CL 10MEQ/50ML IVPB 50 ML IV SCH ×3 (04:57→07:17)
[2019-01-10] MEDS: KCL 20 MEQ TAB (K-DUR) PO SCH (04:57)
[2019-01-10] MEDS ORDERED: PHARMACY TO DOSE IV SCH (05:30)
--- NOTE | 2019-01-10 05:31 | Pulmonary Progress Note ---
Subjective Time Seen by a Provider: 05:29 Subjective/Events-last exam Pt sedated on vent. Sepsis Event Evaluation Height, Weight, BMI Height: 6'0.00" Weight: 193lbs. 9.0oz. 87.992452yz; 26.5 BMI Method:Estimated Focused Exam Lactate Level 01/07/19 20:26: Lactic Acid Level 0.94 Exam Exam Vital Signs Date Time Temp Pulse Resp B/P (MAP) Pulse Ox O2 Delivery O2 Flow Rate FiO2 01/10/19 05:00 92 32 114/55 (74) 92 Mechanical Ventilator 35.00 01/10/19 04:38 92 29 91 35 01/10/19 04:00 Mechanical Ventilator 35 01/10/19 04:00 95 27 119/58 (78) 91 Mechanical Ventilator 35.00 01/10/19 03:32 97.5 01/10/19 03:00 86 8 131/62 (85) 93 Mechanical Ventilator 35.00 01/10/19 02:57 86 25 93 35 01/10/19 02:06 99.3 90 14 112/54 93 Mechanical Ventilator 35.00 01/10/19 02:00 90 24 116/56 (76) 93 Mechanical Ventilator 35.00 01/10/19 01:00 90 14 112/54 (73) 93 Mechanical Ventilator 35.00 01/10/19 01:00 90 01/10/19 00:00 99.3 01/10/19 00:00 95 27 102/51 (68) 93 Mechanical Ventilator 35.00 01/10/19 00:00 Mechanical Ventilator 35 01/09/19 23:00 90 24 113/56 (75) 94 Mechanical Ventilator 35.00 01/09/19 22:47 98.2 01/09/19 22:45 90 24 94 35 01/09/19 22:45 99.0 93 25 116/57 95 Mechanical Ventilator 35.00 01/09/19 22:00 90 29 118/60 (79) 95 Mechanical Ventilator 35.00 01/09/19 22:00 99.0 01/09/19 21:00 100.2 01/09/19 21:00 93 25 116/57 (76) 95 Mechanical Ventilator 35.00 01/09/19 20:43 93 27 95 35 01/09/19 20:00 Mechanical Ventilator 35 01/09/19 20:00 99.8 01/09/19 20:00 93 26 110/54 (72) 95 Mechanical Ventilator 35.00 01/09/19 19:46 98.6 92 26 136/66 94 Mechanical Ventilator 35.00 01/09/19 19:00 92 30 130/62 (84) 94 Mechanical Ventilator 35.00 01/09/19 19:00 92 01/09/19 18:07 92 26 94 35 01/09/19 18:00 91 23 135/64 (87) 94 Mechanical Ventilator 35.00 01/09/19 17:00 92 37 137/60 (85) 95 Mechanical Ventilator 35.00 01/09/19 16:21 93 29 94 35 01/09/19 16:17 139/65 01/09/19 16:00 93 32 136/63 (87) 94 Mechanical Ventilator 35.00 01/09/19 15:30 Mechanical Ventilator 35 01/09/19 15:00 90 29 143/71 (95) 94 Mechanical Ventilator 25.00 01/09/19 14:00 89 28 151/70 (97) 95 Mechanical Ventilator 25.00 01/09/19 13:52 89 31 95 35 01/09/19 13:09 140/87 01/09/19 13:00 86 27 131/81 (98) 96 Mechanical Ventilator 25.00 01/09/19 13:00 86 01/09/19 12:50 Mechanical Ventilator 35 01/09/19 12:00 98.6 01/09/19 12:00 86 26 133/80 (97) 95 Mechanical Ventilator 25.00 01/09/19 11:05 87 25 96 35 01/09/19 11:00 86 27 156/77 (103) 96 Mechanical Ventilator 25.00 01/09/19 10:00 75 29 172/76 (108) 100 Mechanical Ventilator 25.00 01/09/19 09:29 147/82 01/09/19 09:21 81 33 97 35 01/09/19 09:00 71 28 134/61 (85) 94 Mechanical Ventilator 35.00 01/09/19 08:00 Mechanical Ventilator 35 01/09/19 08:00 75 26 134/61 (85) 94 Mechanical Ventilator 35.00 01/09/19 07:57 96.6 01/09/19 07:00 81 26 92/40 (57) 97 Mechanical Ventilator 24.00 01/09/19 07:00 80 6/10/19 06:46 24 01/09/19 06:25 96 Mechanical Ventilator 24 01/09/19 06:13 79 23 96 24 01/09/19 06:03 97.2 79 23 139/68 96 Mechanical Ventilator 24.00 01/09/19 06:00 77 22 136/66 (89) 96 Mechanical Ventilator 24.00 I & O 01/10/19 07:00 Intake Total 4368 ml Output Total 5525 ml Balance -1157 ml Height & Weight Height: 6'0.00" Weight: 193lbs. 9.0oz. 87.456596ie; 26.5 BMI Method:Estimated General Appearance: No Apparent Distress, WD/WN HEENT: Normal ENT Inspection, Other (Pupils are pin prick) Neck: Normal Inspection, Supple Respiratory: Chest Non Tender, Lungs Clear, Normal Breath Sounds, No Accessory Muscle Use, No Respiratory Distress Cardiovascular: Regular Rate, Rhythm, No Gallop, No Murmur, Normal Peripheral Pulses Capillary Refill: Less Than 3 Seconds Peripheral Pulses: 2+ Radial Pulses (R), 2+ Radial Pulses (L) Gastrointestinal: non tender, soft Extremity: Normal Capillary Refill, No Pedal Edema Neurologic/Psychiatric: Other ( sedated and intubated) Skin: Normal Color, Warm/Dry Results Lab Laboratory Tests 01/08/19 12:15 01/09/19 02:45 01/10/19 03:10 Assessment/Plan Assessment/Plan Acute respiratory failure -Currently sedated on vent -Weaning parameters look good. He is only on 35% 02 -D/C all sedation and once pt is awake will proceed with extubation -Thick copious sputum production with mucous plugging reported by RT -S/p bronchoscopy PNA - probably aspiration PNA -MRSA is negative -Will start Zosyn and await cultures Hypomag, hypokalemia -replace Hyponatremia -Monitor Methamphetamine OD Marijuana GI/DVT ppx [place] AMIN DO Jan 10, 2019 05:31
--- NOTE | 2019-01-10 05:42 | NUR ---
Pt extubated at 0542, restraints removed at 0545. Pt's vitals are stable. Pt resting comfortably. Will continue to monitor.
--- NOTE | 2019-01-10 05:42 | NUR ---
PT EXTUBATED @ 0542 AND PLACED ON O2 @ 2 LPM.
[2019-01-10] MEDS ORDERED: NS (IVPB) 100 ML ONE (06:19)
[2019-01-10] MEDS ORDERED: PIPERACILLIN/TAZO 4.5 GM VIAL (ZOSYN) IV ONE (06:19)
[2019-01-10] MEDS: PIPERACILLIN/TAZOBACTAM (BULK) 4.5 GM in NS (IVPB) 100 ML IV SCH ×3 (06:40→21:34)
--- NOTE | 2019-01-10 08:10 | Diagnostic Imaging Report ---
INDICATION: Overdose. COMPARISON: 01/09/2019. TECHNIQUE: Single radiograph of chest dated 01/10/2019. FINDINGS: Endotracheal tube and enteric catheter are stable. Cardiac silhouette is unchanged. The lungs are clear of focal pulmonary opacity. No pleural effusion. No pneumothorax. No acute osseous abnormality. IMPRESSION: Stable appearing examination with unchanged lines and tubes without adverse change. Dictated by: Dictated on workstation # [id number]
[2019-01-10] MEDS: FAMOTIDINE 20MG/2ML IV (PEPCID) IV SCH ×2 (08:54→21:34)
[2019-01-10] MEDS: ENOXAPARIN 40 MG/0.4 ML (LOVENOX) SYR SC SCH (08:54)
--- NOTE | 2019-01-10 15:26 | Progress Note-Hospitalist ---
Progress Note Progress Notes/Assess & Plan Date Seen 01/10/19 Time Seen by Provider: 15:23 Assessment & Plan The patient has been successfully extubated. It was reported by the nursing staff that he has been sleeping most of the day. He was sleeping when I entered the room however responded to touch and awakened. Is relatively vague about the things that happened to him but did state he believed he was in [facility]. Physical exam: Lungs are clear to auscultation. CV is regular without murmur. Vital signs are stable. Impression: Volitional overdose, presumably of methamphetamine and antidepressants. Plan: Continue IV fluids. Focused Exam Lactate Level 01/07/19 20:26: Lactic Acid Level 0.94 ANU SABILLON MD Jan 10, 2019 15:25
--- NOTE | 2019-01-10 23:20 | NUR ---
Pt has had multiple visitors, pt's vitals have been stable up till this point. After visitor left BP dropped into 70-80's systolic, EICU notified and orders received. Will continue to monitor patient.
--- NOTE | 2019-01-10 23:28 | NUR ---
Called ALBERTO in regards to decreased BP.
[2019-01-10] MEDS ORDERED: NS IV 500 ML 500 ML ONE (23:45)
[2019-01-10] MEDS: NS IV 500 ML 500 ML IV PRN (23:55)
[2019-01-11] VITALS (26 sets, daily range): BP systolic 82–131; BP diastolic 34–80
[2019-01-11] MEDS: NS IV 500 ML 500 ML IV PRN (00:55)
[2019-01-11] MEDS: RT-ALBUTEROL/IPRATROPIUM 3 ML (DUONEB) VIAL INH SCH ×3 (02:42→10:39)
--- NOTE | 2019-01-11 03:25 | NUR ---
Called ALBERTO regarding decreased BP.
[2019-01-11 03:52] LABS: BASOPHILS % (AUTO) 0 % (0-10); EOSINOPHILS # (AUTO) 0.2 10^3/uL (0.0-0.3); EOSINOPHILS % (AUTO) 3 % (0-10); HEMATOCRIT 37 % (40-54); HEMOGLOBIN 12.7 G/DL (13.3-17.7); LYMPHOCYTES # (AUTO) 1.1 X 10^3 (1.0-4.0); LYMPHOCYTES % (AUTO) 14 % (12-44); MEAN CORPUSCULAR HEMOGLOBIN 29 PG (25-34); MEAN CORPUSCULAR HGB CONC 34 G/DL (32-36); MEAN CORPUSCULAR VOLUME 86 FL (80-99); MEAN PLATELET VOLUME 10.5 FL (7.4-10.4); MONOCYTES # (AUTO) 0.6 X 10^3 (0.0-1.0); MONOCYTES % (AUTO) 8 % (0-12); NEUTROPHILS # (AUTO) 5.8 X 10^3 (1.8-7.8); NEUTROPHILS % (AUTO) 75 % (42-75); PLATELET COUNT 146 10^3/uL (130-400); RED CELL DISTRIBUTION WIDTH 12.4 % (10.0-14.5); WHITE BLOOD COUNT 7.7 10^3/uL (4.3-11.0)
[2019-01-11 04:14] LABS: BUN/CREATININE RATIO 12; CALCIUM 8.3 MG/DL (8.5-10.1); CARBON DIOXIDE 21 MMOL/L (21-32); CHLORIDE 109 MMOL/L (98-107); CREATININE SERUM 0.86 MG/DL (0.60-1.30); GFR ESTIMATED > 60; GLUCOSE 116 MG/DL (70-105); MAGNESIUM 1.8 MG/DL (1.8-2.4); PHOSPHORUS 2.5 MG/DL (2.3-4.7); POTASSIUM 3.4 MMOL/L (3.6-5.0); SODIUM 140 MMOL/L (135-145)
--- NOTE | 2019-01-11 05:49 | Pulmonary Progress Note ---
Subjective Time Seen by a Provider: 05:48 Subjective/Events-last exam No complications noted. Pt is doing well off vent. Sepsis Event Evaluation Height, Weight, BMI Height: 6'0.00" Weight: 193lbs. 9.0oz. 87.128876hh; 26.5 BMI Method:Estimated Exam Exam Vital Signs Date Time Temp Pulse Resp B/P (MAP) Pulse Ox O2 Delivery O2 Flow Rate FiO2 01/11/19 05:00 81 122/69 (86) 96 Room Air 01/11/19 04:45 93 26 119/66 (83) 96 Room Air 01/11/19 04:30 89 28 115/64 (81) 97 Room Air 01/11/19 04:15 97 35 113/62 (79) 94 Room Air 01/11/19 04:00 97.3 01/11/19 04:00 91 29 103/60 (74) 95 Room Air 01/11/19 03:45 93 31 105/65 (78) 93 Room Air 01/11/19 03:32 Room Air 01/11/19 03:30 97 33 103/59 (74) 93 Room Air 01/11/19 03:15 101 36 89/50 (63) 91 Room Air 01/11/19 03:00 103 36 82/34 (50) 95 Room Air 01/11/19 02:45 84 17 122/57 (78) 100 Room Air 01/11/19 02:43 98 Room Air 01/11/19 02:30 85 27 97/61 (73) 95 Room Air 01/11/19 02:15 89 34 99/63 (75) 95 Room Air 01/11/19 02:00 82 17 100/58 (72) 93 Room Air 01/11/19 01:06 86 01/11/19 01:00 85 32 113/76 (88) 91 Room Air 01/11/19 00:45 90 37 104/63 (77) 93 Room Air 01/11/19 00:30 90 32 87/58 (68) 94 Room Air 01/11/19 00:15 94 33 94/58 (70) 94 Room Air 01/11/19 00:00 92 32 93/59 (70) 95 Room Air 01/11/19 00:00 Room Air 01/10/19 23:45 99 21 80/52 (61) 94 Room Air 01/10/19 23:27 98.1 01/10/19 23:22 101 31 90/47 (61) 94 Room Air 01/10/19 23:00 101 42 88/45 (59) 94 Room Air 01/10/19 22:52 100.1 95 36 109/59 95 Room Air 2.00 01/10/19 22:30 95 Room Air 01/10/19 22:00 95 36 109/59 (76) 93 Room Air 01/10/19 21:00 89 31 109/59 (76) 94 Room Air 01/10/19 20:00 Room Air 01/10/19 20:00 96 27 116/66 (83) 94 Room Air 01/10/19 20:00 100.1 01/10/19 19:48 99.7 102 29 111/61 (78) 93 Room Air 01/10/19 19:12 96 01/10/19 19:05 99 Room Air 01/10/19 19:00 92 39 92 Room Air 01/10/19 17:00 99.1 01/10/19 16:00 99.6 01/10/19 16:00 96 42 110/63 (79) 97 Nasal Cannula 2.00 01/10/19 16:00 Nasal Cannula 2.00 01/10/19 15:04 95 Nasal Cannula 2.00 01/10/19 15:00 104 31 107/61 (76) 95 Nasal Cannula 2.00 01/10/19 14:00 90 47 104/50 (68) 96 Nasal Cannula 2.00 01/10/19 13:00 89 35 113/55 (74) 98 Nasal Cannula 2.00 01/10/19 12:00 Nasal Cannula 2.00 01/10/19 12:00 98 26 100/63 (75) 98 Nasal Cannula 2.00 01/10/19 12:00 98 01/10/19 12:00 100.5 01/10/19 11:00 103 40 96/58 (71) 94 Nasal Cannula 2.00 01/10/19 10:40 95 Nasal Cannula 2.00 01/10/19 10:00 91 35 97/56 (70) 95 Nasal Cannula 2.00 01/10/19 09:00 95 29 98/51 (67) 94 Nasal Cannula 2.00 01/10/19 08:00 Nasal Cannula 2.00 01/10/19 08:00 92 30 113/52 (72) 92 Nasal Cannula 2.00 01/10/19 07:11 94 Nasal Cannula 2.00 01/10/19 07:00 99 01/10/19 07:00 90 28 124/52 (76) 94 Nasal Cannula 2.00 01/10/19 06:00 85 28 149/67 (94) 92 Mechanical Ventilator 35.00 I & O 01/11/19 07:00 Intake Total 2980 ml Output Total 2325 ml Balance 655 ml Height & Weight Height: 6'0.00" Weight: 193lbs. 9.0oz. 87.909442gs; 26.5 BMI Method:Estimated General Appearance: No Apparent Distress, WD/WN HEENT: PERRL/EOMI, Normal ENT Inspection Neck: Normal Inspection, Supple Respiratory: Chest Non Tender, Lungs Clear, Normal Breath Sounds, No Accessory Muscle Use, No Respiratory Distress Cardiovascular: Regular Rate, Rhythm, No Gallop, No Murmur, Normal Peripheral Pulses Capillary Refill: Less Than 3 Seconds Peripheral Pulses: 2+ Radial Pulses (R), 2+ Radial Pulses (L) Gastrointestinal: non tender, soft Extremity: Normal Capillary Refill, No Pedal Edema Neurologic/Psychiatric: Other ( sedated and intubated) Skin: Normal Color, Warm/Dry Results Lab Laboratory Tests 01/10/19 03:10 01/11/19 03:05 Assessment/Plan Assessment/Plan Acute respiratory failure - resolved -Pt is now on RA -pt is doing well off vent. = PNA - probably aspiration PNA -MRSA is negative - Zosyn and await cultures Hypomag, hypokalemia -replace Hyponatremia -Monitor Methamphetamine OD Marijuana GI/DVT ppx [place] AMIN DO Jan 11, 2019 05:49
[2019-01-11] MEDS: POTASSIUM CL 10MEQ/50ML IVPB 50 ML IV SCH ×2 (06:15→07:12)
[2019-01-11] MEDS: PIPERACILLIN/TAZOBACTAM (BULK) 4.5 GM in NS (IVPB) 100 ML IV SCH (06:15)
[2019-01-11] MEDS: CATHETER FLUSH 10 ML SYR IV SCH (06:16)
--- NOTE | 2019-01-11 07:31 | Diagnostic Imaging Report ---
INDICATION: Overdose Upright chest shows normal heart size and vascularity. There is left basilar atelectasis. No infiltrates or effusions are seen. The ET tube and OG tube have been removed since 01/10/2019. IMPRESSION: Interval extubation with development of left basilar discoid atelectasis. Dictated by: Dictated on workstation # [id number]
[2019-01-11] MEDS: FAMOTIDINE 20MG/2ML IV (PEPCID) IV SCH (09:15)
[2019-01-11] MEDS: ENOXAPARIN 40 MG/0.4 ML (LOVENOX) SYR SC SCH (09:15)
--- NOTE | 2019-01-11 11:00 | Discharge Summary-Hospitalist ---
Diagnosis/Chief Complaint Date of Admission Jan 07, 2019 at 20:59 Date of Discharge Discharge Date: Jan 11, 2019 Admission Diagnosis Intentional methamphetamine overdose Respiratory failure secondary to overdose Plan is to keep patient intubated for protection of his airway and to control his agitation until the methamphetamine has been metabolized and any absorbed medications have been processed. Discharge Diagnosis (1) Drug overdose Status: Acute (2) Alteration of consciousness Status: Acute (3) Methamphetamine abuse Status: Acute (4) Sertraline-induced encephalopathy Status: Acute Discharge Summary Discharge Physical Exam Allergies: Coded Allergies: No Known Drug Allergies (Unverified , 04/29/13) Vitals & I&Os Vital Signs Date Time Temp Pulse Resp B/P (MAP) Pulse Ox O2 Delivery O2 Flow Rate FiO2 01/11/19 12:00 01/11/19 10:39 96 Room Air 01/11/19 08:00 98.4 90 20 01/10/19 22:52 2.00 01/10/19 04:38 35 General Appearance: No Apparent Distress, WD/WN Respiratory: Chest Non Tender, Lungs Clear, Normal Breath Sounds, No Accessory Muscle Use, No Respiratory Distress Cardiovascular: Regular Rate, Rhythm, No Edema, No Gallop, No JVD, No Murmur, Normal Peripheral Pulses Neurologic/Psychiatric: Alert, Oriented x3, No Motor/Sensory Deficits, Normal Mood/Affect Hospital Course Was the Problem List Reviewed?: Yes Hospital course; Pt had a complex hospital course for 5 days he was admitted after he evaded police and when caught he swallowed his stash of Methamphetamines. He was intubated, was critically ill, he stabilized placed on Zosyn for the full 5 days for empiric treatment of aspiration pneumonitis and pt was stable at discharge lungs were clear and police were notified since they did have an arrest hold on him and he will be obtaining [facility]. Labs (last 24 hrs) Laboratory Tests 01/11/19 03:05: White Blood Count 7.7, Red Blood Count 4.34L, Hemoglobin 12.7L, Hematocrit 37L, Mean Corpuscular Volume 86, Mean Corpuscular Hemoglobin 29, Mean Corpuscular Hemoglobin Concent 34, Red Cell Distribution Width 12.4, Platelet Count 146, Nallely n Platelet Volume 10.5H, Neutrophils (%) (Auto) 75, Lymphocytes (%) (Auto) 14, Monocytes (%) (Auto) 8, Eosinophils (%) (Auto) 3, Basophils (%) (Auto) 0, Neutrophils # (Auto) 5.8, Lymphocytes # (Auto) 1.1, Monocytes # (Auto) 0.6, Eosinophils # (Auto) 0.2, Basophils # (Auto) 0.0, Sodium Level 140, Potassium Level 3.4L, Chloride Level 109H, Carbon Dioxide Level 21, Anion Gap 10, Blood Urea Nitrogen 10, Creatinine 0.86, Estimat Glomerular Filtration Rate > 60, BUN/Creatinine Ratio 12, Glucose Level 116H, Calcium Level 8.3L, Phosphorus Level 2.5, Magnesium Level 1.8 Microbiology 01/07/19 Blood Culture - Preliminary, Resulted No growth 01/09/19 Mycobacterial Culture - Preliminary, Resulted Patient resulted labs reviewed. Pending Labs Imaging: Reviewed Imaging Report Discussion & Recommendations Discharge Planning: <30 minutes discharge planning Discharge Home Medications: Active Scripts Active No Active Prescriptions or Reported Medications Instructions to patient/family Please see electronic discharge instructions given to patient. Clinical Quality Measures DVT/VTE Risk/Contraindication: Risk Factor Score Per Nursin RFS Level Per Nursing on Admit: 4+=Very High Problem Qualifiers (1) Drug overdose: Encounter type: initial encounter Injury intent: undetermined intent Qualified Codes: T50.904A - Poisoning by unspecified drugs, medicaments and biological substances, undetermined, initial encounter SANJAY BRITO DO Jan 11, 2019 10:59
--- NOTE | 2019-01-11 11:32 | Physical Therapy Progress Note ---
Therapy Progress Note PT eval order received. Nurse reports that patient is actually ambulating independently and Dr. Frausto is going to discharge him. Will not see at this time unless otherwise specified. JOVANNY PINZON PT Jan 11, 2019 11:32
== END 2019-01-11 11:45 | DRG 917 ==
LOC: EDUNIT# 19:43 → ER 19:45 → ICU 20:59 → 4TH 01-11 08:05
PROVIDERS: ADMIT Internal Medicine; ATTEND Internal Medicine
PROC: 0BH17EZ Insertion of Endotracheal Airway into Trachea, Via Natural or Artificial Opening (ICD-10-PCS; principal; 2019-01-07)
PROC: 5A1945Z Respiratory Ventilation, 24-96 Consecutive Hours (ICD-10-PCS; 2019-01-07)
PROC: 0BC78ZZ Extirpation of Matter from Left Main Bronchus, Via Natural or Artificial Opening Endoscopic (ICD-10-PCS; 2019-01-09)
PROC: 0BC38ZZ Extirpation of Matter from Right Main Bronchus, Via Natural or Artificial Opening Endoscopic (ICD-10-PCS; 2019-01-09)
PROC: 0B978ZX Drainage of Left Main Bronchus, Via Natural or Artificial Opening Endoscopic, Diagnostic (ICD-10-PCS; 2019-01-09)
PROC: 0B938ZX Drainage of Right Main Bronchus, Via Natural or Artificial Opening Endoscopic, Diagnostic (ICD-10-PCS; 2019-01-09)
DX: T43.622A Poisoning by amphetamines, intentional self-harm, initial encounter (principal); T43.222A Poisoning by selective serotonin reuptake inhibitors, intentional self-harm, initial encounter; G92 Toxic encephalopathy; J96.90 Respiratory failure, unspecified, unspecified whether with hypoxia or hypercapnia; E87.1 Hypo-osmolality and hyponatremia; J69.0 Pneumonitis due to inhalation of food and vomit; R56.9 Unspecified convulsions; R40.4 Transient alteration of awareness; R25.1 Tremor, unspecified; F15.10 Other stimulant abuse, uncomplicated; R40.2420 Glasgow coma scale score 9-12, unspecified time; R40.2430 Glasgow coma scale score 3-8, unspecified time; J98.09 Other diseases of bronchus, not elsewhere classified; E83.42 Hypomagnesemia; E87.6 Hypokalemia
CPT/HCPCS: 31500; 36415; 36600; 51702; 70450; 71045; 80048; 80053; 80306; 80320; 80329; 81000; 82805; 82962; 83605; 83735; 83880; 84100; 85007; 85025; 85027; 87015; 87040; 87070; 87077; 87081; 87101; 87116; 87205; 87206; 89051; 93005; 93041; 94002; 94003; 94640; 94760; 94799; 96361; 96365; 99291

== ENCOUNTER 2021-02-02 10:42 | Emergency (ER) | payer SELFPAY ==
[~2021-02-02] VITALS: Ht 182 cm; Wt 81.6 kg
[2021-02-02] MEDS ORDERED: KETOROLAC 60 MG/2 ML VIAL IM ONE (12:00)
[2021-02-02] MEDS ORDERED: ORPHENADRINE 60 MG/2 ML (NORFLEX) AMP (ED ONLY) IM ONE (12:00)
--- NOTE | 2021-02-02 12:00 | ED Back Pain ---
General Chief Complaint: Back Problems Stated Complaint: BACK PAIN Nursing Triage Note: PT PRESENTS TO ED VIA POV FROM HOME WITH COMPLAINTS OF LOWER BACK PAIN X 8 DAYS AND L INGUINAL HERNIA CONCERNS Source of Information: Patient Exam Limitations: No Limitations (CORY GREEN APRN) History of Present Illness Date Seen by Provider: Feb 02, 2021 Time Seen by Provider: 11:58 Initial Comments To ER by private vehicle with reports of midline low back pain for 8 days. It does not radiate down either leg. No troubles with urination. No fevers or chills. A few weeks ago he jumped out of the bed of his truck and is concerned he may have fractured something in his back. He has not yet sought care for this. He also reports that he has severe anxiety and would like something for this. He also has a left inguinal hernia for many years that bulges when he stands up and goes away when he lays flat. Hed like something for pain for that as well. Location: Lumbar Spine, Paraspinous Muscles Timing/Duration: 2-3 Days Severity: Moderate Pain/Injury Location: Back Associated Symptoms: denies symptoms (CORY GREEN APRN) Allergies and Home Medications Allergies Coded Allergies: No Known Drug Allergies (Unverified , 04/29/13) Home Medications Hydroxyzine Pamoate 50 Mg Capsule, 50 MG PO TID PRN for ANXIETY Prescribed by: CORY GREEN on 02/02/21 1205 Methocarbamol 750 Mg Tablet, 750 MG PO Q6-8HR Prescribed by: CORY GREEN on 02/02/21 1205 Prednisone 20 Mg Tab, 40 MG PO DAILY Prescribed by: CORY GREEN on 02/02/21 1205 Patient Home Medication List Home Medication List Reviewed: Yes (CORY GREEN APRN) Review of Systems Constitutional: see HPI EENTM: see HPI Respiratory: no symptoms reported Cardiovascular: no symptoms reported Genitourinary: no symptoms reported Musculoskeletal: see HPI Skin: no symptoms reported Psychiatric/Neurological: No Symptoms Reported (CORY GREEN APRN) Past Hvofced-Fitvxx-Ctilob Hx Patient Social History Tobacco Use?: Yes Tobacco type used: Cigarettes Smoking Status: Current Everyday Smoker Substance use?: No Alcohol Use?: No Pt feels they are or have been: No (CORY GREEN APRN) Immunizations Up To Date Tetanus Booster (TDap): Less than 5yrs (CORY GREEN APRN) Seasonal Allergies Seasonal Allergies: No (CORY GREEN APRN) Past Medical History Surgeries: No Respiratory: No Cardiac: No Neurological: No Genitourinary: No Gastrointestinal: No Musculoskeletal: Yes Fractures Endocrine: No HEENT: No Cancer: No Psychosocial: Yes Integumentary: No (CORY GREEN APRN) Physical Exam Vital Signs Vital Signs - First Documented 02/02/21 11:00 Pulse 106 Resp 20 B/P (MAP) 140/86 (104) Pulse Ox 99 (JUAN JOSÉ KEARNS MD) Vital Signs Capillary Refill : Less Than 3 Seconds (CORY GREEN APRN) Height, Weight, BMI Height: 6'0.00" Weight: 194lbs. 0.0oz. 87.290675tf; 24.00 BMI Method:Estimated General Appearance: No Apparent Distress, WD/WN, Other (Sleeping upon my arrival into the room. Awakens to tell me what excruciating pain he is in and states that he would like something for anxiety.) Neck: Full Range of Motion, Normal Inspection Respiratory: No Accessory Muscle Use, No Respiratory Distress Gastrointestinal: Non Tender, Soft, Other (There is a golf ball sized left inguinal hernia that reduces upon lying flat and bulges upon standing. He is passing gas and having normal bowel movements.) Back: Normal Inspection Extremity: Normal Capillary Refill, Normal Inspection Neurologic/Psychiatric: Alert, Oriented x3 Skin: Normal Color (CORY GREEN APRN) Procedures/Interventions Date of ETT Placement: Jan 07, 2019 Time of ETT Placement: 2008 (CORY GREEN APRN) Progress/Results/Core Measures Results/Orders Lab Results Laboratory Tests Test 02/02/21 12:00 Range/Units Urine Color YELLOW Urine Clarity CLEAR Urine pH 7.0 5-9 Urine Specific Todd <=1.005 1.016-1.022 Urine Protein NEGATIVE NEGATIVE Urine Glucose (UA) NEGATIVE NEGATIVE Urine Ketones NEGATIVE NEGATIVE Urine Nitrite NEGATIVE NEGATIVE Urine Bilirubin NEGATIVE NEGATIVE Urine Urobilinogen 0.2 < = 1.0 MG/DL Urine Leukocyte Esterase NEGATIVE NEGATIVE Urine RBC (Auto) NEGATIVE NEGATIVE Urine RBC NONE /HPF Urine WBC NONE /HPF Urine Squamous Epithelial Cells NONE /HPF Urine Crystals NONE /LPF Urine Bacteria NEGATIVE /HPF Urine Casts NONE /LPF Urine Mucus NEGATIVE /LPF Urine Culture Indicated NO Urine Opiates Screen NEGATIVE NEGATIVE Urine Oxycodone Screen NEGATIVE NEGATIVE Urine Methadone Screen NEGATIVE NEGATIVE Urine Propoxyphene Screen NEGATIVE NEGATIVE Urine Barbiturates Screen NEGATIVE NEGATIVE Ur Tricyclic Antidepressants Screen NEGATIVE NEGATIVE Urine Phencyclidine Screen NEGATIVE NEGATIVE Urine Amphetamines Screen POSITIVE H NEGATIVE Urine Methamphetamines Screen POSITIVE H NEGATIVE Urine Benzodiazepines Screen NEGATIVE NEGATIVE Urine Cocaine Screen NEGATIVE NEGATIVE Urine Cannabinoids Screen POSITIVE H NEGATIVE (JUAN JOSÉ KEARNS MD) Vital Signs/I&O 02/02/21 02/02/21 11:00 12:43 Pulse 106 95 Resp 20 20 B/P (MAP) 140/86 (104) 132/80 (104) Pulse Ox 99 99 (JUAN JOSÉ KEARNS MD) Blood Pressure Mean: 104 Departure Impression Primary Impression: Low back pain Additional Impressions: Anxiety Left inguinal hernia Disposition: 01 HOME, SELF-CARE Condition: Stable Departure-Patient Inst. Decision time for Depature: 12:00 (CORY GREEN APRN) Referrals: NO,LOCAL PHYSICIAN (PCP/Family) Primary Care Physician Patient Instructions: Low Back Pain in Adults Scripts Hydroxyzine Pamoate (Vistaril) 50 Mg Capsule 50 MG PO TID PRN for ANXIETY, #10 CAP Prov: CORY GREEN APRN 02/02/21 Methocarbamol (Methocarbamol) 750 Mg Tablet 750 MG PO Q6-8HR for Back Pain, #14 TAB Prov: CORY GREEN APRN 02/02/21 Prednisone (Prednisone) 20 Mg Tab 40 MG PO DAILY, #6 TAB 0 Refills Prov: CORY GREEN APRN 02/02/21 ATTENDING PHYSICIAN NOTE: I was physically present as attending physician in the emergency department during the care of this patient, but I was not directly involved in the decision making or delivery of care for this patient. (JUAN JOSÉ KEARNS MD) CORY GREEN APRN Feb 02, 2021 12:00 JUAN JOSÉ KEARNS MD Feb 03, 2021 06:22
[2021-02-02] MEDS ORDERED: METH-732 PO (12:05)
[2021-02-02] MEDS ORDERED: HYDR50CA PO (12:05)
[2021-02-02] MEDS ORDERED: PRD20T PO (12:05)
[2021-02-02 12:07] LABS: BILIRUBIN,URINE NEGATIVE (NEGATIVE); CLARITY,URINE CLEAR; COLOR,URINE YELLOW; GLUCOSE, URINE (UA) NEGATIVE (NEGATIVE); KETONES,URINE NEGATIVE (NEGATIVE); LEUKOCYTE ESTERASE ,URINE NEGATIVE (NEGATIVE); NITRITE,URINE NEGATIVE (NEGATIVE); PROTEIN,URINE NEGATIVE (NEGATIVE)
[2021-02-02 12:17] LABS: BACTERIA,URINE NEGATIVE /HPF
[2021-02-02 12:19] LABS: AMPHETAMINE SCREEN, URINE POSITIVE (NEGATIVE); BARBITURATE SCREEN URINE NEGATIVE (NEGATIVE); BENZODIAZEPINES SCREEN URINE NEGATIVE (NEGATIVE); CANNABINOID SCREEN, URINE POSITIVE (NEGATIVE); COCAINE SCREEN URINE NEGATIVE (NEGATIVE); METHADONE STAT NEGATIVE (NEGATIVE); METHAMPHETAMINE SCREEN URINE S POSITIVE (NEGATIVE); OPIATE SCREEN URINE NEGATIVE (NEGATIVE); OXYCODONE STAT NEGATIVE (NEGATIVE); PROPOXYPHENE STAT NEGATIVE (NEGATIVE); TRICYCLIC ANTIDEPRESSANTS SCRE NEGATIVE (NEGATIVE)
--- NOTE | 2021-02-02 12:33 | Diagnostic Imaging Report ---
PROCEDURE: CT lumbar spine without contrast. TECHNIQUE: Multiple contiguous axial images were obtained through the lumbar spine without the use of intravenous contrast. Sagittal and coronal reformations were then performed. Auto Exposure Controls were utilized during the CT exam to meet ALARA standards for radiation dose reduction. Indication: Worsening low back pain after recent injury. Comparison: None. Discussion: Advanced facet arthropathy is noted diffusely. Mild degenerative disc disease is noted diffusely. Multiple anterior syndesmophytes are present. Small disc bulges are noted throughout. There is no compression fracture or abnormal subluxation. No severe neural foraminal narrowing. No obvious severe central canal stenosis on this noncontrast CT. Moderate degenerative disease noted within the sacroiliac joints. No sacral fracture identified. Adjacent soft tissues are unremarkable. Impression: 1. Diffuse degenerative changes noted throughout the lumbar spine. No acute fracture. Dictated by: Dictated on workstation # [id number]
[2021-02-02 12:43] VITALS: BP 132/80
== END 2021-02-02 12:42 | disposition home or self-care (01) ==
LOC: EDUNIT# 10:42 → ER 10:44
DX: M54.5 Low back pain (principal); F41.9 Anxiety disorder, unspecified; K40.90 Unilateral inguinal hernia, without obstruction or gangrene, not specified as recurrent; F17.210 Nicotine dependence, cigarettes, uncomplicated
CPT/HCPCS: 72131; 80306; 81000

== ENCOUNTER 2021-03-27 19:54 | Emergency (ER) | payer SELFPAY ==
[~2021-03-27] VITALS: Ht 182 cm; Wt 83.9 kg
[~2021-03-27 19:54] MED LIST changes: +HYDR50CA PO; +METH-732 PO; +PRD20T PO
--- OUTSIDE RECORDS SUMMARY | 2021-03-27 20:00 | XMS REPORT | Clinical Summary ---
Author Author [facility] Organization [facility] Address Unknown Phone Unavailable Care Team Providers Care Machine Greaser Name Role Phone PCP Unavailable Allergies Not on File Medications Not on file Active Problems Not on file Social History Date Tobacco Use Types Packs/Day Years Used Never Assessed Sex Assigned at Date Recorded Not on file Last Filed Vital Signs Not on file Plan of Treatment Not on file Results Not on filefrom Last 3 Months
--- NOTE | 2021-03-27 20:13 | ED General ---
General Chief Complaint: General Problems/Pain Stated Complaint: GROIN PAIN Source of Information: Patient Exam Limitations: No Limitations History of Present Illness Date Seen by Provider: Mar 27, 2021 Time Seen by Provider: 20:08 Initial Comments To ER with reports of a left inguinal hernia that he has had for several years. Today about 6 hours ago it bulged out and he is not able to reduce it as he typically is. He has severe pain and nausea. Timing/Duration: 1-2 Days Severity: Moderate Associated Systoms: Denies Symptoms Allergies and Home Medications Allergies Coded Allergies: No Known Drug Allergies (Unverified , 04/29/13) Home Medications Hydroxyzine Pamoate 50 Mg Capsule, 50 MG PO TID PRN for ANXIETY Prescribed by: CORY GREEN on 02/02/21 1205 Methocarbamol 750 Mg Tablet, 750 MG PO Q6-8HR Prescribed by: CORY GREEN on 02/02/21 1205 Prednisone 20 Mg Tab, 40 MG PO DAILY Prescribed by: CORY GREEN on 02/02/21 1205 Patient Home Medication List Home Medication List Reviewed: Yes Review of Systems Review of Systems Constitutional: see HPI EENTM: see HPI Respiratory: no symptoms reported Cardiovascular: no symptoms reported Gastrointestinal: abdominal pain Genitourinary: no symptoms reported Musculoskeletal: no symptoms reported Skin: no symptoms reported Psychiatric/Neurological: No Symptoms Reported Hematologic/Lymphatic: No Symptoms Reported Immunological/Allergic: no symptoms reported Past Ufavoqs-Kcvctl-Fjpbal Hx Immunizations Up To Date Tetanus Booster (TDap): Less than 5yrs Seasonal Allergies Seasonal Allergies: No Past Medical History Surgeries: No Respiratory: No Cardiac: No Neurological: No Genitourinary: No Gastrointestinal: No Musculoskeletal: Yes Fractures Endocrine: No HEENT: No Cancer: No Psychosocial: Yes Integumentary: No Physical Exam Vital Signs Vital Signs - First Documented 03/27/21 20:03 Temp 36.6 Pulse 75 Resp 20 B/P (MAP) 128/93 (105) Pulse Ox 98 O2 Delivery Room Air Capillary Refill : Height, Weight, BMI Height: 6'0.00" Weight: 194lbs. 0.0oz. 87.315431dm; 24.00 BMI Method:Estimated General Appearance: No Apparent Distress, WD/WN Eyes: Bilateral Eye Normal Inspection, Bilateral Eye PERRL, Bilateral Eye EOMI Neck: Full Range of Motion, Normal Inspection Respiratory: No Accessory Muscle Use, No Respiratory Distress Gastrointestinal: Normal Bowel Sounds, Soft, Tenderness, Other (There is a golf ball sized bulge to the left inguinal area. However upon laying flat he was able to reduce this himself with resultant improvement in his pain.) Extremity: Normal Capillary Refill, Normal Inspection Neurologic/Psychiatric: Alert, Oriented x3 Skin: Normal Color, Warm/Dry Procedures/Interventions Date of ETT Placement: Jan 07, 2019 Time of ETT Placement: 2008 Progress/Results/Core Measures Suspected Sepsis SIRS Temperature: Pulse: Respiratory Rate: Laboratory Tests 03/27/21 20:05: White Blood Count 11.9H Blood Pressure / Mean: Laboratory Tests 03/27/21 20:05: Creatinine 1.49H, Platelet Count 337 Results/Orders Lab Results Laboratory Tests Test 03/27/21 20:05 Range/Units White Blood Count 11.9 H 4.3-11.0 10^3/uL Red Blood Count 5.43 4.30-5.52 10^6/uL Hemoglobin 15.7 13.3-17.7 g/dL Hematocrit 49 40-54 % Mean Corpuscular Volume 90 80-99 fL Mean Corpuscular Hemoglobin 29 25-34 pg Mean Corpuscular Hemoglobin Concent 32 32-36 g/dL Red Cell Distribution Width 13.6 10.0-14.5 % Platelet Count 337 130-400 10^3/uL Mean Platelet Volume 9.8 9.0-12.2 fL Immature Granulocyte % (Auto) 1 % Neutrophils (%) (Auto) 68 42-75 % Lymphocytes (%) (Auto) 21 12-44 % Monocytes (%) (Auto) 7 0-12 % Eosinophils (%) (Auto) 3 0-10 % Basophils (%) (Auto) 1 0-10 % Neutrophils # (Auto) 8.1 H 1.8-7.8 10^3/uL Lymphocytes # (Auto) 2.5 1.0-4.0 10^3/uL Monocytes # (Auto) 0.8 0.0-1.0 10^3/uL Eosinophils # (Auto) 0.3 0.0-0.3 10^3/uL Basophils # (Auto) 0.1 0.0-0.1 10^3/uL Immature Granulocyte # (Auto) 0.1 0.0-0.1 10^3/uL Sodium Level 139 135-145 MMOL/L Potassium Level 4.9 3.6-5.0 MMOL/L Chloride Level 106 98-107 MMOL/L Carbon Dioxide Level 21 21-32 MMOL/L Anion Gap 12 5-14 MMOL/L Blood Urea Nitrogen 28 H 7-18 MG/DL Creatinine 1.49 H 0.60-1.30 MG/DL Estimat Glomerular Filtration Rate 50 BUN/Creatinine Ratio 19 Glucose Level 90 70-105 MG/DL Calcium Level 9.8 8.5-10.1 MG/DL My Orders Orders - CORY GREEN APRN Ketorolac Injection (Toradol Injection) (03/27/21 20:15) Fentanyl Inj (Sublimaze Injection) (03/27/21 20:15) Ondansetron Injection (Zofran Injectio (03/27/21 20:15) Cbc With Automated Diff (03/27/21 20:14) Basic Metabolic Panel (03/27/21 20:14) Ed Iv/Invasive Line Start (03/27/21 20:14) Ct Abdomen/Pelvis Wo (03/27/21 20:56) Medications Given in ED Current Medications Medications Dose Ordered Sig/Suman Route Start Time Stop Time Status Last Admin Dose Admin Fentanyl Citrate 50 mcg ONCE ONCE IVP 03/27/21 20:15 03/27/21 20:16 DC 03/27/21 20:18 50 MCG Ketorolac Tromethamine 30 mg ONCE ONCE IVP 03/27/21 20:15 03/27/21 20:16 DC 03/27/21 20:18 30 MG Ondansetron HCl 4 mg ONCE ONCE IVP 03/27/21 20:15 03/27/21 20:16 DC 03/27/21 20:17 4 MG Vital Signs/I&O 03/27/21 20:03 Temp 36.6 Pulse 75 Resp 20 B/P (MAP) 128/93 (105) Pulse Ox 98 O2 Delivery Room Air Capillary Refill : Departure Communication (Admissions) NAME: JORGE L ACUÑA MED REC#: [id number] PT STATUS: REG ER : 1970 PHYSICIAN: CORY GREEN APRN ADMIT DATE: 03/27/21/ER Draft Date of Exam:03/27/21 CT ABDOMEN/PELVIS WO PROCEDURE: CT abdomen and pelvis without contrast. TECHNIQUE: Multiple contiguous axial images were obtained through the abdomen and pelvis without the use of intravenous contrast. Auto Exposure Controls were utilized during the CT exam to meet ALARA standards for radiation dose reduction. INDICATION: Left lower quadrant abdominal pain. History of hernia. COMPARISON: None. FINDINGS: The lung bases are clear. The heart is normal in size. There is elevation of the left hemidiaphragm. Evaluation is suboptimal due to lack of contrast, motion artifact and low mesenteric fat. No focal liver lesion is seen. The spleen appears normal. The pancreas appears normal. The adrenal glands are unremarkable. The kidneys demonstrate no hydronephrosis or stone. The stomach is distended with fluid and ingested material. There are fluid-filled loops of small bowel, without high-grade small bowel distention. The colon does appear to have marked stool with moderate gas, with marked distention of the cecum. The cecum does not appear displaced from its typical location to suggest a volvulus. No significant free fluid or free air is seen. There is no acute osseous abnormality seen. There are degenerative changes in the spine. IMPRESSION: Marked stool in the colon, suggestive of constipation. There is marked distention of the cecum, with no mechanical obstruction identified. Pseudoobstruction (Lubna's) is not excluded. No free air or pneumatosis is seen. Dictated on workstation # [id number] Dict: 03/27/212121 Trans: 03/27/212133 [id number] Interpreted by: ANGELICA LEDESMA MD Electronically signed by: Impression Primary Impression: Left inguinal hernia Disposition: 01 HOME, SELF-CARE Condition: Stable Departure-Patient Inst. Decision time for Depature: 20:14 Referrals: SASHA MARTINEZ BRETT D DO KIDO, TAKAAKI MD NO,LOCAL PHYSICIAN (PCP) Primary Care Physician Patient Instructions: Inguinal and Femoral (Groin) Hernias Add. Discharge Instructions: 1. Call a surgeon of your choosing for follow up and to talk about surgical repair of this hernia. All discharge instructions reviewed with patient and/or family. Voiced understanding. Scripts Naproxen Sodium (Anaprox Ds) 550 Mg Tablet 550 MG PO BID PRN for PAIN-MILD (1-4), #30 TAB Prov: GREENCORY JUSTICE APRN 03/27/21 CORY GREEN APRN Mar 27, 2021 20:13
[2021-03-27] MEDS ORDERED: KETOROLAC 30 MG/ML VIAL IVP ONE (20:15)
[2021-03-27] MEDS ORDERED: fentaNYL INJ 100 MCG/2 ML AMP IVP ONE (20:15)
[2021-03-27] MEDS ORDERED: ONDANSETRON 4 MG/2 ML (SDV) Z0FRAN IVP ONE (20:15)
[2021-03-27 20:22] LABS: BASOPHILS # (AUTO) 0.1 10^3/uL (0.0-0.1); BASOPHILS % (AUTO) 1 % (0-10); EOSINOPHILS # (AUTO) 0.3 10^3/uL (0.0-0.3); EOSINOPHILS % (AUTO) 3 % (0-10); HEMATOCRIT 49 % (40-54); HEMOGLOBIN 15.7 g/dL (13.3-17.7); LYMPHOCYTES # (AUTO) 2.5 10^3/uL (1.0-4.0); LYMPHOCYTES % (AUTO) 21 % (12-44); MEAN CORPUSCULAR HEMOGLOBIN 29 pg (25-34); MEAN CORPUSCULAR HGB CONC 32 g/dL (32-36); MEAN CORPUSCULAR VOLUME 90 fL (80-99); MEAN PLATELET VOLUME 9.8 fL (9.0-12.2); MONOCYTES # (AUTO) 0.8 10^3/uL (0.0-1.0); MONOCYTES % (AUTO) 7 % (0-12); NEUTROPHILS # (AUTO) 8.1 10^3/uL (1.8-7.8); NEUTROPHILS % (AUTO) 68 % (42-75); PLATELET COUNT 337 10^3/uL (130-400); WHITE BLOOD COUNT 11.9 10^3/uL (4.3-11.0)
[2021-03-27 20:35] LABS: CALCIUM 9.8 MG/DL (8.5-10.1); CREATININE SERUM 1.49 MG/DL (0.60-1.30); POTASSIUM 4.9 MMOL/L (3.6-5.0)
--- NOTE | 2021-03-27 21:35 | Diagnostic Imaging Report ---
PROCEDURE: CT abdomen and pelvis without contrast. TECHNIQUE: Multiple contiguous axial images were obtained through the abdomen and pelvis without the use of intravenous contrast. Auto Exposure Controls were utilized during the CT exam to meet ALARA standards for radiation dose reduction. INDICATION: Left lower quadrant abdominal pain. History of hernia. COMPARISON: None. FINDINGS: The lung bases are clear. The heart is normal in size. There is elevation of the left hemidiaphragm. Evaluation is suboptimal due to lack of contrast, motion artifact and low mesenteric fat. No focal liver lesion is seen. The spleen appears normal. The pancreas appears normal. The adrenal glands are unremarkable. The kidneys demonstrate no hydronephrosis or stone. The stomach is distended with fluid and ingested material. There are fluid-filled loops of small bowel, without high-grade small bowel distention. The colon does appear to have marked stool with moderate gas, with marked distention of the cecum. The cecum does not appear displaced from its typical location to suggest a volvulus. No significant free fluid or free air is seen. There is no acute osseous abnormality seen. There are degenerative changes in the spine. IMPRESSION: Marked stool in the colon, suggestive of constipation. There is marked distention of the cecum, with no mechanical obstruction identified. Pseudoobstruction (Tyler's) is not excluded. No free air or pneumatosis is seen. Dictated by: Dictated on workstation # [id number]
[2021-03-27] MEDS ORDERED: NAPR-1070 PO (21:46)
[2021-03-27 22:11] VITALS: BP 125/75
== END 2021-03-27 22:13 | disposition home or self-care (01) ==
LOC: EDUNIT# 19:54 → ER 19:57
DX: K40.90 Unilateral inguinal hernia, without obstruction or gangrene, not specified as recurrent (principal); Z79.52 Long term (current) use of systemic steroids
CPT/HCPCS: 36415; 74176; 80048; 85025

== ENCOUNTER 2021-08-17 08:35 | Emergency (ER) | payer SELFPAY ==
[~2021-08-17] VITALS: Ht 182 cm; Wt 82.0 kg
[~2021-08-17 08:35] MED LIST changes: +NAPR-1070 PO
[2021-08-17 09:14] LABS: BASOPHILS # (AUTO) 0.1 10^3/uL (0.0-0.1); BASOPHILS % (AUTO) 0 % (0-10); EOSINOPHILS # (AUTO) 0.5 10^3/uL (0.0-0.3); EOSINOPHILS % (AUTO) 4 % (0-10); HEMATOCRIT 46 % (40-54); HEMOGLOBIN 15.5 g/dL (13.3-17.7); LYMPHOCYTES # (AUTO) 2.2 10^3/uL (1.0-4.0); LYMPHOCYTES % (AUTO) 16 % (12-44); MEAN CORPUSCULAR HEMOGLOBIN 30 pg (25-34); MEAN CORPUSCULAR HGB CONC 34 g/dL (32-36); MEAN CORPUSCULAR VOLUME 89 fL (80-99); MEAN PLATELET VOLUME 9.6 fL (9.0-12.2); MONOCYTES % (AUTO) 8 % (0-12); NEUTROPHILS # (AUTO) 9.9 10^3/uL (1.8-7.8); NEUTROPHILS % (AUTO) 72 % (42-75); PLATELET COUNT 397 10^3/uL (130-400); WHITE BLOOD COUNT 13.7 10^3/uL (4.3-11.0)
[2021-08-17] MEDS ORDERED: LACTATED RINGERS 1,000 ML IV ONE (09:15)
[2021-08-17] MEDS ORDERED: fentaNYL INJ 100 MCG/2 ML AMP IVP ONE (09:15)
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
[2021-08-17 09:27] LABS: BILIRUBIN,URINE NEGATIVE (NEGATIVE); GLUCOSE, URINE (UA) NEGATIVE (NEGATIVE); KETONES,URINE NEGATIVE (NEGATIVE); LEUKOCYTE ESTERASE ,URINE NEGATIVE (NEGATIVE); NITRITE,URINE NEGATIVE (NEGATIVE); PH,URINE 7.5 (5-9); PROTEIN,URINE NEGATIVE (NEGATIVE)
[2021-08-17 09:30] LABS: CALCIUM 9.4 MG/DL (8.5-10.1)
[2021-08-17 09:31] LABS: TOTAL PROTEIN 7.6 GM/DL (6.4-8.2)
[2021-08-17 09:33] LABS: BILIRUBIN,TOTAL 0.8 MG/DL (0.1-1.0)
[2021-08-17 09:34] LABS: CREATININE SERUM 0.85 MG/DL (0.60-1.30)
[2021-08-17 09:36] LABS: BACTERIA,URINE NEGATIVE /HPF; CLARITY,URINE CLEAR; COLOR,URINE YELLOW
[2021-08-17] MEDS ORDERED: IOHEXOL 350 MG/ML 100 ML (OMNIPAQUE 350) VIAL IV ONE (11:15)
[2021-08-17] MEDS ORDERED: CATHETER FLUSH 10 ML SYR IV PRN (11:15)
[2021-08-17] MEDS ORDERED: NS 100 ML (IVPB) BAG IV ONE (11:15)
[2021-08-17] MEDS ORDERED: HOLD METFORMIN - RECEIVED CONTRAST 20 ML VIAL IV SCH (11:15)
--- NOTE | 2021-08-17 11:30 | Diagnostic Imaging Report ---
PROCEDURE: CT chest, abdomen, and pelvis with contrast. TECHNIQUE: Multiple contiguous axial images were obtained through the chest, abdomen, and pelvis after the administration of intravenous contrast. Auto Exposure Controls were utilized during the CT exam to meet ALARA standards for radiation dose reduction. INDICATION: Injury from trauma. Left-sided chest pain. Back pain. COMPARISON: None available. FINDINGS: CHEST: There is a mildly comminuted fracture in the posterior aspect of the left 11th rib. 12th ribs are hypoplastic. Small left pleural effusion is present. No pneumothorax. There is some patchy groundglass opacities in the right lower lobe which could be due to aspiration or infection. No mediastinal hemorrhage or vascular injury in the chest. Heart is normal in size without pericardial effusion. No compression injury within the thoracic vertebrae. Clavicles are intact where seen. No sternal fracture. ABDOMEN AND PELVIS: No free intraperitoneal air or fluid. The spleen and liver have no features of laceration or contusion. Pancreas is normal. No adrenal mass. Kidneys enhance symmetrically without mass lesion or acute injury. No bowel obstruction. No retroperitoneal hemorrhage or aortic dissection. Acute nondisplaced fracture in the left L2 transverse process. No compression injury within the lumbar spine. No fracture within the pelvis or proximal femurs. IMPRESSION: 1. Acute, mildly comminuted fracturing the posterior left 11th rib. This results in a small left-sided pleural effusion but no pneumothorax. 2. Patchy groundglass in the right lung base could be due to aspiration or infection. 3. Nondisplaced fracture in the tip of the left L2 transverse process. No additional fracture within the lumbar spine. 4. No visceral injury in the abdomen or pelvis. Dictated by: Dictated on workstation # [id number]
[2021-08-17] MEDS ORDERED: HYDR-3817 PO (12:03)
[2021-08-17 12:19] VITALS: BP 110/72
== END 2021-08-17 12:20 | disposition home or self-care (01) ==
LOC: EDUNIT# 08:35 → ER 08:38
DX: S22.32XA Fracture of one rib, left side, initial encounter for closed fracture (principal); S32.029A Unspecified fracture of second lumbar vertebra, initial encounter for closed fracture; S27.321A Contusion of lung, unilateral, initial encounter; V89.2XXA Person injured in unspecified motor-vehicle accident, traffic, initial encounter; F17.210 Nicotine dependence, cigarettes, uncomplicated
CPT/HCPCS: 36415; 71260; 74177; 80053; 81000; 85025; 96374